=== PATIENT | female | born 1985 | race Caucasian/White ===

== ENCOUNTER 2017-06-19 11:11 | Emergency (ER) | payer OTHER ==
[2017-06-19] MEDS ORDERED: Ondansetron HCl/PF 4 MG/2 ML Vial ONE (11:37)
[2017-06-19 12:03] LABS: #Basophils 0.1 thou/uL (0.0-0.2); #Eosinphils 0.1 thou/uL (0.0-0.7); #Lymphocytes 2.7 thou/uL (1.20-3.40); #Monocytes 0.8 thou/uL (0.11-0.59); #Neutrophils 7.4 thou/uL (1.40-6.50); %Basophils 0.9 % (0.0-1.0); %Eosinophils 0.6 % (0.0-10.0); %Lymphocytes 24.8 % (21.0-51.0); %Monocytes 6.8 % (0.0-10.0); %Neutrophils 66.9 % (42.0-75.0); Hemoglobin 12.3 g/dL (12.0-16.0); Mean Corpuscular HGB CONC 34.9 g/dL (32.0-36.0); Mean Corpuscular Hemoglobin 29.7 pg (27.0-31.0); Mean Platelet Volume 6.4 fL (7.4-10.4); Platelet Count 354 thou/uL (130-400); RBC Distribution Width 11.6 % (11.5-14.5); Red Blood Cell (RBC) Count 4.14 mill/uL (4.20-5.40); White Blood Cell (WBC) Count 11.1 thou/uL (4.8-10.8)
[2017-06-19 12:17] LABS: ALT (SGPT) 20 U/L (8-55); AST (SGOT) 18 U/L (5-34); Albumin 3.8 g/dL (3.5-5.0); Alkaline Phosphatase 62 U/L (40-150); Anion Gap 14 mmol/L (10-20); BUN (Urea Nitrogen) 5 mg/dL (7.0-18.7); Bilirubin, Total 0.3 mg/dL (0.2-1.2); Calc. Creatinine Clearance 0 mL/min (70-130); Calcium 9.7 mg/dL (7.8-10.44); Carbon Dioxide 22 mmol/L (22-29); Chloride 106 mmol/L (98-107); Estimated GFR-MDRD Greater than 90; Globulin 3.2 g/dL (2.4-3.5); Glucose 96 mg/dL (70-105); Potassium 3.5 mmol/L (3.5-5.1); Sodium 138 mmol/L (136-145)
[2017-06-19 12:41] LABS: Bilirubin Negative (Negative); Blood, Urine Moderate (Negative); Clarity Cloudy (Clear); Glucose, Urine (Dipstick) Negative (Negative); Leukocyte Negative (Negative); Nitrite Negative (Negative); Protein, Urine (Dipstick) Trace mg/dL (Neg-Trace); Specific Gravity, Urine 1.015 (1.005-1.030); Urobilinogen 0.2 mg/dL (0.2-1.0); pH, Urine 8.5 (5.0-9.0)
[2017-06-19 12:43] LABS: Bacteria/HPF 1+ HPF (None Seen); Crystals/HPF 4+ AMORPH PHOS HPF (Negative); Squamous Epithelial 0-3 HPF (0-3); WBC/HPF 0-3 HPF (0-3)
--- NOTE | 2017-06-19 15:15 | ULT ---
ULTRASOUND OB LIMITED: HISTORY: Vaginal spotting. COMPARISON: None. TECHNIQUE: Real-time, marshall scale, color Doppler with spectral analysis of the gravid uterus performed by transab dominal approach. Single viable intrauterine with average ultrasound age 15 weeks 5 days, estimated date of d elivery 12/06/17. The placenta is anterior and the presentation cephalic. Biparietal diameter is 16 weeks 0 days, 3.22 cm. Head circumference 16 weeks 1 day, 11.89 cm. Abdominal circumference 15 weeks 3 days, 9.32 cm. Femur length 15 weeks 4 days, 1.86 cm. heart rate documented at 153 b.p.m. IMPRESSION: Single viable intrauterine with average ultrasound age 15 weeks 5 days with estimated date of delivery 12/06/17. Recommend dedicated anatomic survey at 20 weeks. POS: ROBBIE
[2017-06-22 00:53] LABS: Chlamydia by PCR Not Detected (NotDetected); GC by PCR Not Detected (NotDetected)
== END 2017-06-19 13:21 | disposition home or self-care (01) ==
LOC: SCSER 11:11
DX: O20.9 Hemorrhage in early pregnancy, unspecified (principal); O99.282 Endocrine, nutritional and metabolic diseases complicating pregnancy, second trimester; E03.9 Hypothyroidism, unspecified; Z79.899 Other long term (current) drug therapy; Z3A.15 15 weeks gestation of pregnancy
CPT/HCPCS: 76815; 76856; 80053; 81003; 81015; 84702; 85025; 86900; 86901; 87086; 87480; 87491; 87510; 87591; 87660; 96374; J2405

== ENCOUNTER 2017-08-18 11:05 | Day surgery (SDC) | payer OTHER ==
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
[2017-08-18 11:24] VITALS: BMI 31.8
[2017-08-18 11:26] VITALS: BP 139/88; TEMP 99.7
[2017-08-18] MEDS ORDERED: Acetaminophen 500 MG TAB PO SCH (12:15)
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
== END 2017-08-18 13:15 | disposition home health service (06) ==
LOC: L&D/OP 11:05 → EDSTATUS 11:12 → L&D/OP 13:15
PROVIDERS: ATTEND Student in an Organized Health Care Education/Training Program
DX: O9A.212 Injury, poisoning and certain other consequences of external causes complicating pregnancy, second trimester (principal); Z3A.24 24 weeks gestation of pregnancy; Z88.0 Allergy status to penicillin; Z88.1 Allergy status to other antibiotic agents; Z88.8 Allergy status to other drugs, medicaments and biological substances
CPT/HCPCS: 99283; 99284

== ENCOUNTER 2017-09-12 15:40 | Day surgery (SDC) | payer OTHER ==
[2017-09-12 16:19] VITALS: BMI 30.3
[2017-09-12 16:20] VITALS: BP 160/99; TEMP 98.4
[2017-09-12 17:03] LABS: #Eosinphils 0.1 thou/uL (0.0-0.7); #Lymphocytes 2.9 thou/uL (1.20-3.40); #Monocytes 0.8 thou/uL (0.11-0.59); #Neutrophils 5.4 thou/uL (1.40-6.50); %Basophils 0.5 % (0.0-1.0); %Eosinophils 0.6 % (0.0-10.0); %Lymphocytes 31.9 % (21.0-51.0); %Monocytes 8.4 % (0.0-10.0); %Neutrophils 58.6 % (42.0-75.0); Hemoglobin 12.3 g/dL (12.0-16.0); Mean Corpuscular HGB CONC 34.5 g/dL (32.0-36.0); Mean Corpuscular Hemoglobin 30.5 pg (27.0-31.0); Mean Corpuscular Volume 88.5 fL (78.0-98.0); Mean Platelet Volume 6.4 fL (7.4-10.4); Platelet Count 288 thou/uL (130-400); RBC Distribution Width 12.1 % (11.5-14.5); Red Blood Cell (RBC) Count 4.02 mill/uL (4.20-5.40); White Blood Cell (WBC) Count 9.2 thou/uL (4.8-10.8)
[2017-09-12 17:20] LABS: Bilirubin Negative (Negative); Blood, Urine Small (Negative); Clarity CLOUDY (Clear); Glucose, Urine (Dipstick) Negative (Negative); Leukocyte Negative (Negative); Nitrite Negative (Negative); Protein, Urine (Dipstick) Trace mg/dL (Neg-Trace); Specific Gravity, Urine 1.011 (1.002-1.036); Urobilinogen 0.2 mg/dL (0.2-1.0)
[2017-09-12 17:24] LABS: Bacteria/HPF None Seen HPF (None Seen); Hyaline Casts/LPF 0-3 HYALINE CAST LPF (0-3 Hyaline); Pathc Cast-AUWi Flag 0.14 (0-2.49); Squamous Epithelial 0-3 HPF (0-3); WBC/HPF 0-3 HPF (0-3)
[2017-09-12 17:24] LABS: ALT (SGPT) 24 U/L (8-55); AST (SGOT) 20 U/L (5-34); Albumin 3.3 g/dL (3.5-5.0); Alkaline Phosphatase 103 U/L (40-150); Anion Gap 11 mmol/L (10-20); BUN (Urea Nitrogen) 6 mg/dL (7.0-18.7); Bilirubin, Total 0.2 mg/dL (0.2-1.2); Calc. Creatinine Clearance 155 mL/min (70-130); Calcium 9.2 mg/dL (7.8-10.44); Carbon Dioxide 20 mmol/L (22-29); Chloride 108 mmol/L (98-107); Estimated GFR-MDRD Greater than 90; Glucose 83 mg/dL (70-105); Potassium 3.3 mmol/L (3.5-5.1); Protein, Total 6.3 g/dL (6.0-8.3); Sodium 136 mmol/L (136-145)
--- NOTE | 2017-09-13 05:36 | SS ---
LABOR AND DELIVERY TRIAGE NOTE DATE OF EVALUATION: 09/12/2017 REGULAR PHYSICIAN: Jamia Salinas M.D. EVALUATING PHYSICIAN: Hay Nicole M.D. CHIEF COMPLAINT: Elevated blood pressures at home. HISTORY OF PRESENT ILLNESS: Ms. Chris is a 32-year-old, G2, P0, AB1 with an estimated date of confinement of 12/08/2017, who presents complaining of elevated blood pressures at home. She called the [facility] with complaints of intermittent headache throughout the week with blood pressures at home of 156/112 and 159/108. She was instructed to come to labor and delivery. Her care has been with Dr. Salinas. PAST OBSTETRICAL HISTORY: She has had one early miscarriage. PAST MEDICAL HISTORY: History of migraine headaches, hypothyroidism. CURRENT MEDICATIONS: Synthroid 50 mcg daily. PAST SURGICAL HISTORY: None. ALLERGIES: She reports allergies to NORTRIPTYLINE, DOXYCYCLINE, MACROBID, VESICARE, and TOVIAZ. SOCIAL HISTORY: She denies tobacco or alcohol use. PHYSICAL EXAMINATION: VITAL SIGNS: Initial blood pressure in triage is 160/99. Subsequent blood pressures are 140/86 and 137/83, temperature 98.5, pulse 98, respirations 18. Serial blood pressures are obtained throughout her stay. Her blood pressures remain in the 130s/80s range. ABDOMEN: Soft, nontender and gravid. PELVIC: Pelvic examination is deferred. heart tones were stable. No significant uterine activity seen. LABORATORY DATA: CBC: White count 9.2, hemoglobin 12.3, hematocrit 35.6, platelet count 288,000. Chemistry shows a creatinine of 0.62, glucose of 83, total bilirubin of 0.2, and AST and ALT of 20 and 24 respectively. Urinalysis shows a specific gravity of 1.011 with negative nitrites, negative leukocytes, trace urine protein, negative glucose, negative ketones and negative bilirubin. ASSESSMENT: 1. 27-week intrauterine . 2. No evidence of preeclampsia at this time. PLAN: The patient has been instructed to go home to rest. She was given complete preeclampsia precautions and is told to return for severe headache, right upper quadrant pain or visual changes. She voices understanding of her discharge instructions and states that she has a followup with Dr. Salinas in early next week. [facility]
== END 2017-09-12 18:15 | disposition home or self-care (01) ==
LOC: L&D/OP 15:40
PROVIDERS: ATTEND Student in an Organized Health Care Education/Training Program
DX: O99.89 Other specified diseases and conditions complicating pregnancy, childbirth and the puerperium (principal); R03.0 Elevated blood-pressure reading, without diagnosis of hypertension; E03.9 Hypothyroidism, unspecified; Z79.899 Other long term (current) drug therapy; Z88.1 Allergy status to other antibiotic agents; Z3A.27 27 weeks gestation of pregnancy
CPT/HCPCS: 36415; 80053; 81003; 81015; 85025; 99283

== ENCOUNTER 2017-09-13 16:03 | Inpatient (IN) | payer OTHER ==
[2017-09-13] MEDS ORDERED: Promethazine HCl 25 MG/ML VIAL IM PRN (16:28)
[2017-09-13] MEDS ORDERED: Zolpidem Tartrate 5 MG TAB PO PRN (16:28)
[2017-09-13] MEDS ORDERED: Ondansetron HCl/PF 4 MG/2 ML Vial IVP PRN (16:28)
[2017-09-13] MEDS ORDERED: Docusate 100 MG CAP PO PRN (16:28)
[2017-09-13] MEDS ORDERED: Acetaminophen 500 MG TAB PO PRN (16:28)
[2017-09-13 17:23] LABS: #Eosinphils 0.1 thou/uL (0.0-0.7); #Lymphocytes 3.1 thou/uL (1.20-3.40); #Monocytes 0.7 thou/uL (0.11-0.59); #Neutrophils 6.5 thou/uL (1.40-6.50); %Basophils 0.3 % (0.0-1.0); %Eosinophils 0.7 % (0.0-10.0); %Lymphocytes 29.9 % (21.0-51.0); %Monocytes 6.7 % (0.0-10.0); %Neutrophils 62.4 % (42.0-75.0); Hemoglobin 12.6 g/dL (12.0-16.0); Mean Corpuscular HGB CONC 34.8 g/dL (32.0-36.0); Mean Corpuscular Hemoglobin 30.8 pg (27.0-31.0); Mean Corpuscular Volume 88.3 fL (78.0-98.0); Mean Platelet Volume 6.7 fL (7.4-10.4); Platelet Count 285 thou/uL (130-400); RBC Distribution Width 12.2 % (11.5-14.5); Red Blood Cell (RBC) Count 4.11 mill/uL (4.20-5.40); White Blood Cell (WBC) Count 10.5 thou/uL (4.8-10.8)
[2017-09-13 17:36] VITALS: BMI 30.7
[2017-09-13 17:43] LABS: ALT (SGPT) 25 U/L (8-55); AST (SGOT) 21 U/L (5-34); Albumin 3.5 g/dL (3.5-5.0); Alkaline Phosphatase 114 U/L (40-150); Anion Gap 14 mmol/L (10-20); BUN (Urea Nitrogen) 8 mg/dL (7.0-18.7); Bilirubin, Total 0.2 mg/dL (0.2-1.2); Calc. Creatinine Clearance 152 mL/min (70-130); Calcium 9.4 mg/dL (7.8-10.44); Carbon Dioxide 20 mmol/L (22-29); Chloride 107 mmol/L (98-107); Estimated GFR-MDRD Greater than 90; Globulin 2.8 g/dL (2.4-3.5); Glucose 129 mg/dL (70-105); Potassium 3.7 mmol/L (3.5-5.1); Protein, Total 6.3 g/dL (6.0-8.3); Sodium 137 mmol/L (136-145)
[2017-09-13 17:53] LABS: Creatinine, Urine 78.04 mg/dL (47-110)
[2017-09-13] MEDS: Betamet Acet/Betamet Na Ph 30 MG/5 ML VIAL IM SCH (17:55)
--- NOTE | 2017-09-13 18:23 | PDOC.LDHP ---
Labor and Delivery H&P Chief complaint: other (elevated blood pressures) HPI: 32yo at 27w6d by LMP presented to clinic with c/o increased pain in upper extremities, especially hands, dull BAINS for last 1 wk. Started checking BP on Wednesday with new onset mild range BP, wednesday BPs were severe range and seen in triage, had nl BP and neg PIH labs. Today at work had manual bps in severe range as high as 115 diastolic. In our clinic they were 160s/90s and pt c/o dull BAINS. Good FM, no PTL signs or VB. No abd pain. +diarrhea, no fever. Current gestational age (weeks): 28 Dating criteria: last menstrual period Grav: 2 Para: 0 Current complications: none Abnormal US findings: No Past Medical History: hypothyroid, migraine BAINS Current medications: pre- vitamins, other (levothyroxine) Previous surgical history: none Allergies/Adverse Reactions: Allergies Allergy/AdvReac Type Severity Reaction Status Date / Time amoxicillin [From Augmentin] Allergy Rash Verified 08/18/17 11:22 clavulanic acid Allergy Rash Verified 09/13/17 17:47 [From Augmentin] doxycycline Allergy Rash Verified 08/18/17 11:22 fesoterodine [From Toviaz] Allergy Hives Verified 08/18/17 11:23 nitrofurantoin Allergy Stomach Verified 08/18/17 11:21 [From Macrobid] Ache nortriptyline Allergy Rash Verified 08/18/17 11:21 Social history: none - Physical Exam Vital signs reviewed and normal: yes General: NAD Heart: RRR Lungs: CTAB Abdomen: gravid Extremeties: no edema FHT: category 1 [place] contractions every: none - OB Labs RH: positive Antibody Screen: negative HIV: negative RPR: negative HEPSAg: negative GBS: unknown Rubella: immune - Assessment New onset elevated BP with BAINS and 1+ protein on office Udip at 28wk - Plan Plan: admit to L&D, informed consent obtained -: - PIH labs wnl, PCR 0.4 (abn) - BAINS improved - BP mild range - Transfer to floor with observation of BP. - BMZ x 2 doses - sono for growth and ARTURO/presentation - Cont inpatient care.
--- NOTE | 2017-09-13 18:45 | ULT ---
LIMITED OBSTETRICAL ULTRASOUND: 09/13/2017 HISTORY: A 32-year-old female with pre-eclampsia. Evaluate size and dates, presentation, and a mniotic fluid index. TECHNIQUE: Multiplanar marshall-scale sonographic imaging of the gravid uterus obtained. FINDINGS: A single intrauterine gestation is visualized with a breech presentation. The placenta is located an teriorly, with no evidence for previa or abruption. Amniotic fluid index is 15 cm. heart rate is 139 beats per minute. anatomy is not assessed on this examination. BIOMETRY: BPD: 7.1 cm (28 weeks 4 days) HC: 26.7 cm (29 weeks 1 day) AC: 24.5 cm (28 weeks 5 days) FL: 5.3 cm (28 weeks 2 days) AVERAGE AGE BASED ON ULTRASOUND: 28 weeks 4 days ESTIMATED DATE OF DELIVERY: 12/02/2017 ESTIMATED WEIGHT: 1255 g, plus or minus 186 g IMPRESSION: Single intrauterine gestation, as described above. POS: SAMANTHA
[2017-09-14] MEDS: Betamet Acet/Betamet Na Ph 30 MG/5 ML VIAL IM SCH (17:07)
--- NOTE | 2017-09-15 03:25 | PRG ---
DATE OF SERVICE: 09/14/2017 TIME OF VISIT: 0800 hours. SUBJECTIVE: Overnight, the patient rested well. She denies any headache, visual changes or right up per quadrant pain. She endorses good movement and she tolerated a regular diet without nausea or vomiting. OBJECTIVE: VITAL SIGNS: Blood pressures had been in the mild range in the 140s/80s, pulse rate is 99, temperatu re 98.4, respirations 18. GENERAL: No acute distress. CARDIAC: Regular rate and rhythm. LUNGS: Clear to auscultation bilaterally. ABDOMEN: Soft, nontender, gravid. EXTREMITIES: Trace lower extremity edema, nonpitting, NST category 1 for gestational age. ASSESSMENT AND PLAN: A 32-year-old at 28 weeks and 0 days with new-onset elevated blood pressu res consistent with some mild preeclampsia. At this point, the patient has not ruled in for se kvng disease, has had normal labs, and is asymptomatic with occasional intermittent headache. She shields s gotten 1 dose of betamethasone, unable to complete the course . As her blood pressures remain ed mild and she has no symptoms suggesting their features, she will be for discharge and of course ou tpatient followup. She had a ultrasound that showed size equal to dates, breech presentation, baby measuring 1255 g, 28 weeks and 4 days, amniotic fluid index is 15 and anterior placenta. Plan o f care was discussed with the patient. She will continue every shift monitoring and q.4 hours vital signs in the sitting position. She will also continue her home medications of levothyroxine and pren atal vitamins.
[2017-09-15] MEDS ORDERED: Levothyroxine Sodium 50 MCG TAB PO SCH (06:00)
[2017-09-15 06:18] VITALS: TEMP 98.2
[2017-09-15 08:20] VITALS: BP 133/71
--- NOTE | 2017-09-15 08:43 | PRG ---
DATE OF SERVICE: 09/15/2017 TIME: 729 SUBJECTIVE: Overnight, the patient rested well. She did have some hot flashes and feels swollen. S he denies any current headache, visual change or right upper quadrant or abdominal pain. She endorse s good movement. Denied vaginal bleeding, leakage of fluid or contraction. OBJECTIVE: VITAL SIGNS: Blood pressure has trended downward, it is occasionally in the 140s/80s, this morning i t was 133/71, temperature is 98.2, pulse is 92, respirations 20. GENERAL: No acute distress, alert and oriented x3. HEART: Regular rate and rhythm. LUNGS: Clear to auscultation bilaterally. ABDOMEN: Soft, nontender and gravid. EXTREMITIES: Trace lower extremity edema, nonpitting. NST for the last shift was category 1 for gestational age. LABORATORY DATA: No new labs at this time. ASSESSMENT AND PLAN: This is a 32-year-old G2, P0 at 28 and 1 day with mild preeclampsia. Currently , no severe features, status post betamethasone x2 doses. Have dispositioned the patient for outpati ent management of mild preeclampsia with modified bed rest and close follow up in the office in 2 day s. She was given instructions to start a blood pressure log 3 times daily and given parameters to re turn to the ER for, as well as warnings for any symptoms. Discussed indications for delivery or read mission to the hospital. All questions were answered and the plan was discussed with the patient and her and they understand.
[2017-09-15] MEDS ORDERED: Prenatal Vitamin 1 TAB PO SCH (09:00)
== END 2017-09-15 08:50 | disposition home health service (06) | DRG 781 ==
LOC: L&D/OP 16:03 → L&D 18:59 → 3SW 20:50
PROVIDERS: ADMIT Student in an Organized Health Care Education/Training Program; ATTEND Student in an Organized Health Care Education/Training Program
DX: O14.03 Mild to moderate pre-eclampsia, third trimester (principal); Z3A.28 28 weeks gestation of pregnancy
CPT/HCPCS: 36415; 59025; 76815; 80053; 81003; 81015; 82570; 84156; 85025; 99283; A4216; J0702

== ENCOUNTER 2017-09-30 11:20 | Observation (INO) | payer OTHER ==
[2017-09-30 11:55] VITALS: BMI 29.4
[2017-09-30] MEDS ORDERED: Ondansetron HCl/PF 4 MG/2 ML Vial IVP PRN (12:52)
[2017-09-30] MEDS ORDERED: Acetaminophen 325 MG TAB PO PRN (12:55)
[2017-09-30] MEDS ORDERED: Zolpidem Tartrate 5 MG TAB PO PRN (12:56)
[2017-09-30] MEDS ORDERED: Lactated Ringer's 500 ML IV SCH (13:00)
[2017-09-30 13:15] LABS: Hemoglobin 14.2 g/dL (12.0-16.0); Mean Corpuscular HGB CONC 35.2 g/dL (32.0-36.0); Mean Corpuscular Hemoglobin 31.4 pg (27.0-31.0); Mean Platelet Volume 6.7 fL (7.4-10.4); Platelet Count 294 thou/uL (130-400); RBC Distribution Width 12.6 % (11.5-14.5); Red Blood Cell (RBC) Count 4.53 mill/uL (4.20-5.40); White Blood Cell (WBC) Count 9.7 thou/uL (4.8-10.8)
[2017-09-30 13:41] LABS: ALT (SGPT) 19 U/L (8-55); AST (SGOT) 22 U/L (5-34); Albumin 3.6 g/dL (3.5-5.0); Alkaline Phosphatase 146 U/L (40-150); Anion Gap 15 mmol/L (10-20); BUN (Urea Nitrogen) 9 mg/dL (7.0-18.7); Bilirubin, Total 0.4 mg/dL (0.2-1.2); Calc. Creatinine Clearance 145 mL/min (70-130); Calcium 9.4 mg/dL (7.8-10.44); Carbon Dioxide 20 mmol/L (22-29); Chloride 106 mmol/L (98-107); Estimated GFR-MDRD Greater than 90; Globulin 3.1 g/dL (2.4-3.5); Glucose 91 mg/dL (70-105); Potassium 4.2 mmol/L (3.5-5.1); Protein, Total 6.7 g/dL (6.0-8.3); Sodium 137 mmol/L (136-145)
[2017-10-01 07:43] VITALS: TEMP 98.4
--- NOTE | 2017-10-01 07:55 | HP ---
DATE OF ENCOUNTER: 09/30/2017 PRIMARY [employer]ENSED [employer] AGENTS: Dr. Jamia Salinas. HISTORY OF PRESENT ILLNESS: The patient is a 32-year-old G2, P0 female with an intrauterine at 30 weeks and 3 days who presented to the emergency room after being advised by the office due to elevated blood pressures. The patient has a known diagnosis of preeclampsia without severe features and is being monitored weekly as an outpatient. Patient reports that this morning she has had several severe range of blood pressures at home with systolic pressures into the 170s and diastolic pressures up to 115. The patient reports she had a severe headache last night, which has spontaneously improved, though not resolved. The patient also reports she has had nausea and vomiting this morning between about 5:30 and her arrival here. This seemed to have resolved with Zofran taken at home. The patient denies any right upper quadrant tenderness or shortness of breath. She does report upper extremity swelling. She denies fever, chest pain, shortness of breath, any new rashes. She reports diarrhea recently. Denies constipation. Denies hip problems, knee problems. Denies vaginal bleeding, leakage of fluid, urinary urgency or frequency. PAST MEDICAL HISTORY: Significant for anemia in college. Thyroid disorder on levothyroxine. PAST SURGICAL HISTORY: She had wisdom teeth removed. SOCIAL HISTORY: Denies drug, alcohol or tobacco use. ALLERGIES: The patient is allergic to VESICARE, TOVIAZ, AUGMENTIN, DOXYCYCLINE , MACROBID, and NORTRIPTYLINE. MEDICATIONS: She currently has prescribed vitamins, levothyroxine 50 mcg daily, Zofran ODT 4 mg p.r.n. OBSTETRICAL LABORATORY DATA: RPR is nonreactive in the first trimester. Hepatitis B surface antigen is nonreactive in the first trimester. HIV is nonreactive in the first trimester. Her TSH was 0.47 in the first trimester. Type and screen O positive with a negative antibody screen. She is rubella immune. REVIEW OF SYSTEMS: Per HPI. PHYSICAL EXAMINATION: VITAL SIGNS: Blood pressure on arrival 145/93, heart rate of 100, respiratory rate of 18, satting 97%-98% on room air, temperature 98.1. Subsequent pressures have normalized with her most recent being 137/87. GENERAL: Patient does not appear to be feeling well. She is alert and oriented , cooperative and pleasant to interact with. HEENT: Head is normocephalic, atraumatic. LUNGS: Clear to auscultation bilaterally. HEART: Has a regular rate and rhythm. ABDOMEN: Gravid, soft, nontender. EXTREMITIES: Nontender, nonedematous. GENITOURINARY: Has been deferred. NEUROLOGIC: Deep tendon reflexes are 2+ with 1 beat of clonus. heart tracing shows a baseline in the 140s with moderate long-term variability with 15 x 15 accelerations. There is irritability on the tocometer , but no definite contraction pattern, not felt by the patient. LABORATORY DATA: White count of 9.7, hemoglobin 14.2, hematocrit 40.3, platelets of 294,000. Sodium 137, potassium 4.2, chloride 106, bicarbonate 20, BUN 9, creatinine 0.66, glucose of 91, AST of 22, ALT of 19, albumin 3.6. ASSESSMENT AND PLAN: The patient is a 32-year-old female with an intrauterine at 30 weeks and 3 days, who has a previous diagnosis of preeclampsia without severe features. The patient reported severe range pressures this morning with headache. There does not appear to be any worsening of disease at this time. Pressures have been normal to mild range during her initial evaluation, pH labs at this time, are all within normal limits. Patient is being admitted for blood pressure monitoring. I have contacted her primary OB, Dr. Jamia Salinas who will be taking over management. Patient will be given IV and placed on maintenance fluids to rehydrate as the patient was persistently vomiting this morning for the next 24 hours or so and then discontinue. Patient is status post betamethasone steroid administration should she requires delivery in this admission. We will confirm presentation by ultrasound. [facility]
[2017-10-01] MEDS ORDERED: Levothyroxine Sodium 75 MCG TAB PO SCH (09:00)
[2017-10-01] MEDS ORDERED: Prenatal Vitamin 1 TAB PO SCH (09:00)
--- NOTE | 2017-10-01 11:31 | ULT ---
BIOPHYSICAL PROFILE: 10/01/2017 HISTORY: A 32-year-old female with elevated blood pressure. TECHNIQUE: Multiplanar marshall-scale sonographic imaging of the gravid uterus is obtained, as described below. FINDINGS: Cervical length is approximately 3.9 cm. The placenta is located anteriorly with no evidence for pre via or abruption. A single intrauterine gestation is present with a heart rate of 143-147 beat s per minute. Amniotic fluid index is 13.3 cm. anatomy is not evaluated on this examination. tone, breathing, movements, and amniotic fluid scored 2/2. A transverse maternal l eft presentation is noted. IMPRESSION: An 8/8 biophysical profile. POS: [facility]
[2017-10-01 17:36] VITALS: BP 138/87
== END 2017-10-01 17:30 | disposition home health service (06) ==
LOC: L&D/OP 11:20 → L&D 13:02
PROVIDERS: ADMIT Student in an Organized Health Care Education/Training Program; ATTEND Student in an Organized Health Care Education/Training Program
DX: O14.03 Mild to moderate pre-eclampsia, third trimester (principal); O99.283 Endocrine, nutritional and metabolic diseases complicating pregnancy, third trimester; E07.9 Disorder of thyroid, unspecified; Z3A.30 30 weeks gestation of pregnancy; Z79.899 Other long term (current) drug therapy; Z88.0 Allergy status to penicillin; Z88.1 Allergy status to other antibiotic agents; Z88.8 Allergy status to other drugs, medicaments and biological substances
CPT/HCPCS: 76819; 80053; 85027; 86850; 86900; 86901; 99285

== ENCOUNTER 2017-10-07 16:33 | Inpatient (IN) | payer OTHER ==
[2017-10-07 17:37] VITALS: BMI 29.7
[2017-10-07 18:35] LABS: #Basophils 0.1 thou/uL (0.0-0.2); #Eosinphils 0.1 thou/uL (0.0-0.7); #Lymphocytes 3.3 thou/uL (1.20-3.40); #Monocytes 0.8 thou/uL (0.11-0.59); #Neutrophils 5.4 thou/uL (1.40-6.50); %Basophils 0.8 % (0.0-1.0); %Eosinophils 0.9 % (0.0-10.0); %Lymphocytes 34.3 % (21.0-51.0); %Monocytes 8.2 % (0.0-10.0); %Neutrophils 55.9 % (42.0-75.0); Hemoglobin 13.5 g/dL (12.0-16.0); Mean Corpuscular HGB CONC 35.3 g/dL (32.0-36.0); Mean Corpuscular Hemoglobin 31.5 pg (27.0-31.0); Mean Corpuscular Volume 89.1 fL (78.0-98.0); Mean Platelet Volume 6.9 fL (7.4-10.4); Platelet Count 257 thou/uL (130-400); RBC Distribution Width 12.7 % (11.5-14.5); Red Blood Cell (RBC) Count 4.28 mill/uL (4.20-5.40); White Blood Cell (WBC) Count 9.6 thou/uL (4.8-10.8)
[2017-10-07] MEDS ORDERED: Promethazine HCl 25 MG/ML VIAL IM PRN (18:45)
[2017-10-07] MEDS ORDERED: Zolpidem Tartrate 5 MG TAB PO PRN (18:45)
[2017-10-07] MEDS ORDERED: Docusate 100 MG CAP PO PRN (18:45)
[2017-10-07] MEDS ORDERED: Ondansetron HCl/PF 4 MG/2 ML Vial IVP PRN (18:45)
[2017-10-07] MEDS ORDERED: Acetaminophen 500 MG TAB PO PRN (18:45)
[2017-10-07 18:55] LABS: ALT (SGPT) 22 U/L (8-55); AST (SGOT) 18 U/L (5-34); Albumin 3.3 g/dL (3.5-5.0); Alkaline Phosphatase 144 U/L (40-150); Anion Gap 13 mmol/L (10-20); BUN (Urea Nitrogen) 11 mg/dL (7.0-18.7); Bilirubin, Total 0.2 mg/dL (0.2-1.2); Calc. Creatinine Clearance 139 mL/min (70-130); Calcium 9.5 mg/dL (7.8-10.44); Carbon Dioxide 21 mmol/L (22-29); Chloride 105 mmol/L (98-107); Estimated GFR-MDRD Greater than 90; Globulin 3.2 g/dL (2.4-3.5); Glucose 104 mg/dL (70-105); Potassium 3.6 mmol/L (3.5-5.1); Protein, Total 6.5 g/dL (6.0-8.3); Sodium 135 mmol/L (136-145)
--- NOTE | 2017-10-07 19:27 | PDOC.LDHP ---
Labor and Delivery H&P Chief complaint: other (elevated blood pressures) HPI: 32yo at 31w3d by LMP sent from office for persistent severe range BPs 150- 160/100s on home monitoring for the last 48hr. Has shoulder right arm pain, some slight abd pain diffuse, no BAINS vision change RUQ pain. Good FM. No PTL sx. Current gestational age (weeks): 31 Due date: 12/07/17 Dating criteria: last menstrual period Grav: 2 Para: 0 Current complications: preeclampsia without severe features Abnormal US findings: No Past Medical History: hypothyroid, migraine BAINS Current medications: pre-deandra vitamins, other (levothyroxine 75mcg) Allergies/Adverse Reactions: Allergies Allergy/AdvReac Type Severity Reaction Status Date / Time amoxicillin [From Augmentin] Allergy Rash Verified 08/18/17 11:22 clavulanic acid Allergy Rash Verified 09/13/17 17:47 [From Augmentin] doxycycline Allergy Rash Verified 08/18/17 11:22 fesoterodine [From Toviaz] Allergy Hives Verified 08/18/17 11:23 nitrofurantoin Allergy Stomach Verified 08/18/17 11:21 [From Macrobid] Ache nortriptyline Allergy Rash Verified 08/18/17 11:21 Social history: none - Physical Exam Vital signs reviewed and normal: yes General: NAD Heart: RRR Lungs: CTAB Abdomen: gravid Extremeties: trace edema FHT: category 1 [place] contractions every: none - OB Labs Blood type: O RH: positive Antibody Screen: negative HIV: negative RPR: negative HEPSAg: negative 1 hour GCT: unknown GBS: unknown Urine drug screen: not done Rubella: immune - Assessment 32yo at 31w3d with PIH r/o severe features. Inpt observation for severe features, disc indications for delivery including symptoms, abn labs, pulmonary edema or persistent severe range BP unable to be controlled by po antihypertensives or 34wk gestation. Ceph presentation, S=D on in office sono. For rescue course BMZ and q shift NST, Bedrest BR privileges, weekly BPP. Will do GBS.
[2017-10-07] MEDS: Betamet Acet/Betamet Na Ph 30 MG/5 ML VIAL IM SCH (21:27)
[2017-10-07 22:50] LABS: Creatinine, Urine 129.61 mg/dL (47-110)
[2017-10-08] MEDS: Levothyroxine Sodium 75 MCG TAB PO SCH (05:53)
--- NOTE | 2017-10-08 08:49 | PDOC.LDPN ---
Labor & Delivery Progress Note - Subjective Subjective: comfortable - Objective Abnormal vital signs: mild range BP General: NAD Uterine fundus: non tender -: 32yo at 31w4d by LMP with PIH. Normal labs, PCR 0.5 No sx currently Receiving rescue course of BMZ For inpt monitoring and observation. If stable may allow DC home early next week. Plan of care discussed.
[2017-10-08] MEDS: Betamet Acet/Betamet Na Ph 30 MG/5 ML VIAL IM SCH (21:59)
--- NOTE | 2017-10-09 03:01 | PDOC.EVN ---
Event Note - Event Note Event Note: Bed 317 Admitted 10/07 Admitted 10/07/17 EGA: 31 week 5 days S. Doing well. She was awake this am. No HAs, no visual issues, no RUQ pain O. BPs reviewed with her: range from 140/90s to 150/90s Afebrile Next NST today wednesday per RN report Abd soft, NT Assessment and plan: 1. 31 weeks 5 days, Preeclampsia by BPs and UPr:Cr ratio. No evidence severe criteria. Continue in-house obs as per carlos Obs with prob dsch early next week if able with close outpatient follow up
[2017-10-09] MEDS: Levothyroxine Sodium 75 MCG TAB PO SCH (05:55)
[2017-10-10] MEDS: Levothyroxine Sodium 75 MCG TAB PO SCH (05:49)
--- NOTE | 2017-10-10 08:48 | PRG ---
DATE OF SERVICE: 10/10/2017 SUBJECTIVE: The patient is hospital day #5 with an intrauterine at 31 weeks for blood pres sure monitoring. The patient has a diagnosis of preeclampsia without severe features. Patient denie s any headache, chest pain, shortness of breath, right upper quadrant tenderness. OBJECTIVE: VITAL SIGNS: This morning, blood pressure is 126/82, temperature 98.2, pulse is 73, respiratory rate of 16, satting 95% on room air. Her blood pressures in the last 24 hours have been in the mild rang e with a peak blood pressure 151/89. GENERAL: The patient appears to be in no acute distress. She is alert and oriented, cooperative and pleasant to interact with. HEENT: Head is normocephalic, atraumatic. LUNGS: Clear to auscultation bilaterally. HEART: Regular rate and rhythm. ABDOMEN: She has no abdominal tenderness to palpation. ASSESSMENT AND PLAN: The patient is a 32-year-old female with an intrauterine at 31 weeks, here being monitored for preeclampsia without severe features. The patient is currently not on any antihypertensive medications. We will continue inhouse monitoring through the weekend. Patient, of note, has a thyroid dysfunction and is on levothyroxine at 75 mcg per day.
[2017-10-11] MEDS: Levothyroxine Sodium 75 MCG TAB PO SCH (06:29)
[2017-10-11 08:31] VITALS: BP 155/94; TEMP 98.2
== END 2017-10-11 10:35 | disposition home or self-care (01) | DRG 781 ==
LOC: L&D/OP 16:33 → 3SE 19:30
PROVIDERS: ADMIT Student in an Organized Health Care Education/Training Program; ATTEND Student in an Organized Health Care Education/Training Program
DX: O14.93 Unspecified pre-eclampsia, third trimester (principal); O99.283 Endocrine, nutritional and metabolic diseases complicating pregnancy, third trimester; E03.9 Hypothyroidism, unspecified; Z3A.31 31 weeks gestation of pregnancy; Z88.1 Allergy status to other antibiotic agents; Z88.0 Allergy status to penicillin; Z88.8 Allergy status to other drugs, medicaments and biological substances; Z79.899 Other long term (current) drug therapy
CPT/HCPCS: 36415; 59025; 80053; 82570; 84156; 85025; 86592; 87389; 99285; J0702

== ENCOUNTER 2017-10-27 09:30 | Inpatient (IN) | payer OTHER ==
--- NOTE | 2017-10-27 10:49 | PDOC.FPROB ---
FMR OB H&P: HPI - History of Present Illness Chief Complaint: Elevated BP History of Present Illness: 32 yo @ 34.0 wk dated by LMP/8.3 wk US and known Pre-eclampsia since 28 wk gestation s/p steroids. Presents from clinic for Pre-E re-evaluation. Patient states she was started on procardia 1-2 weeks ago for BP control. States medication initially helped but noticed BP was trending up over the weekend. States BP at home was 140-mid 150s. Was seen in clinic today and had BP of 165/110. She states she was supposed to have an US performed in clinic but was sent to hospital instead. Reports head pressure in the frontotemporal region. Denies CP, SOB, RUQ pain, or worsening edema. States she has been on bedrest since she was diagnosed with Pre-E Primary Care Physician: Dr. Salinas FMR OB H&P: Current - Care : 2 Para: [id number] Gestational age: 34.0 Due date: 12/08/17 Dating Criteria: LMP/8.3 wk US Course/Complications: Dx Pre-eclampsia at 28 wk. - OB Labs Blood type: O RH: positive Antibody Screen: negative HIV: negative RPR: negative HepBsAg: negative Rubella: immune Gonorrhea: negative Chlamydia: negative Pap Smear: negative with negative HPV 1 hour gtt: unknown GBS: negative (on 10/20/17) H&H: 14.6/42 on 10/20/17 Platelets: 211 - First Trimester Ultrasound First trimester: 8.3 wk and 13.1 wk - Anatomy Survey Anatomy survey: normal anatomy scan. 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 - Family History Family History: HTN, DM, cancer NOS. FMR OB H&P: Medications - Current Home Medications: Medication Instructions Recorded Confirmed Type Vitamin 1 tablet PO DAILY 08/18/17 10/07/17 History Levothyroxine Sodium [Synthroid] 75 mcg PO DAILY 09/30/17 10/07/17 History NIFEdipine [Procardia XL] 30 mg PO DAILY 10/27/17 10/27/17 History Allergies/Adverse Reactions: Allergies Allergy/AdvReac Type Severity Reaction Status Date / Time amoxicillin [From Augmentin] Allergy Rash Verified 08/18/17 11:22 clavulanic acid Allergy Rash Verified 09/13/17 17:47 [From Augmentin] doxycycline Allergy Rash Verified 08/18/17 11:22 fesoterodine [From Toviaz] Allergy Hives Verified 08/18/17 11:23 nitrofurantoin Allergy Stomach Verified 08/18/17 11:21 [From Macrobid] Ache nortriptyline Allergy Rash Verified 08/18/17 11:21 FMR OB H&P: ROS - Review of Systems General: denies: fever/chills, weight/appetite/sleep changes, night sweats Eyes: reports: vision changes (blurry vision 2 weeks ago). denies: eye pain, double vision, scotomas ENT: denies: nasal congestion, rhinorrhea, ringing in ears Cardiovascular: reports: edema (unchanged). denies: chest pain, palpitation, paroxysmal nocturnal dyspnea Gastrointestinal: denies: abdominal pain, indigestion, diarrhea, constipation Genitourinary (Female): denies: incontinence, dysuria, hematuria, vaginal discharge, vaginal pain, vaginal bleeding, vaginal mass/sore Musculoskeletal: denies: pain, stiffness, decrease range of motion Neurologic: reports: headache. denies: numbness, syncope, seizures Integumentary: denies: itching, rash, lesions, discoloration Endocrine: denies: cold intolerance, heat intolerance Hematologic/Lymphatic: denies: prolonged or excessive bleeding, enlarged lymph nodes Psychological: denies: depression, anxiety FMR OB H&P: Vital Signs - Maternal Vital signs: Temp 98.4F. Pulse 90, BP range from systolic of 145-175 and diastolic 86-95. resp 16 - Heart Tones Baseline: 140 Variability: moderate Acceleration: present Deceleration: absent Wilhoit contractions every: none FMR OB H&P: Physical Exam - Physical Exam General: NAD, awake, alert and oriented HEENT: normocephalic and atraumatic, MMM, conjunctiva clear, no scleral icterus Neck: supple, FROM Heart: RRR, normal S1/S2, no murmurs/rubs/gallops, no edema General: CTAB, no respiratory distress, no wheezing Abdomen: soft, gravid Deviation from normal: mild TTP LUQ without guarding or rebound Musculoskeletal: pulses present, FROM in all four extremities Neurological: cranial nerves II through XII intact, sensation to pain,touch and proprioception grossly normal, DTR +2 (patellar) Skin: no rash, good tugor, capillary refill <2 seconds Lymphatic: no unusual bruising or bleeding, no purpura Psychiatric: intact recent and remote memory, good judgement and insight - Pelvic Exam Deviation from normal: deferred FMR OB H&P: Results - Labs Lab results: Laboratory Results - last 24 hr 10/27/17 10/27/17 10:45 10:45 WBC 8.9 RBC 4.66 Hgb 14.2 Hct 42.5 MCV 91.3 MCH 30.6 MCHC 33.5 RDW 13.2 Plt Count 211 MPV 7.2 L Neutrophils % 51.2 Lymphocytes % 37.9 Monocytes % 8.9 Eosinophils % 1.2 Basophils % 0.8 Neutrophils # 4.6 Lymphocytes # 3.4 Monocytes # 0.8 H Eosinophils # 0.1 Basophils # 0.1 Sodium 137 Potassium 4.2 Chloride 106 Carbon Dioxide 21 L Anion Gap 14 BUN 11 Creatinine 0.70 Estimated GFR (MDRD) Greater than 90 Glucose 78 Calcium 9.6 Total Bilirubin 0.3 AST 25 ALT 34 Alkaline Phosphatase 195 H Lactate Dehydrogenase 196 Serum Total Protein 6.5 Albumin 3.2 L Globulin 3.3 Albumin/Globulin Ratio 1.0 L - Imaging Imaging: BPP 10/27, ARTURO 14.0. position-transverse. FMR OB H&P: A/P - Problem List (1) Pre-eclampsia affecting , antepartum Current Visit: No Status: Acute Code(s): O14.90 - UNSPECIFIED PRE-ECLAMPSIA , UNSPECIFIED TRIMESTER Assessment and Plan: @ 34.0 wk with know Pre-E. Presents from clinic with elevated BP. CBC. CMP, and LDH unremarkable. BP trending down since arriving to L&D with most recent BP 120/80 Biophysical profile 10/27 with reactive NST. Discussed findings with Dr. Gupta who agreed with the following plan. - Continue procardia - Monitor BP q15 min on L&D for 2 more hours. If BP remains WNL, discuss importance of bed rest with patient, d/c home with continued home BP monitoring , and follow up in clinic on Wednesday for BP check, - If d/c home, will discuss signs/symptoms of severe features Discussion: Date/Time: 10/27/17 1130 This H&P was discussed with Dr. Huggins and Dr. Gupta who agree with the above documentation and plan. Attending Addendum - Attending Addendum Date/Time: 10/27/17 1318 I personally evaluated the patient and discussed the management with Dr. Glover. I agree with the History, Examination, Assessment and Plan documented above with any addition or exceptions noted below. Patient with known preeclampsia and progressively increasing BPs over the weekend. Labile BPs today with multiple severe range. Labs wnl. After discussing with Dr. Gupta, patient has received 2 rounds of steroids (4 doses) at this point, no indication to defer delivery further. Fetus breech on ultrasound today so will plan on delivery via primary LTCS this afternoon.
[2017-10-27 10:55] LABS: #Basophils 0.1 thou/uL (0.0-0.2); #Eosinphils 0.1 thou/uL (0.0-0.7); #Lymphocytes 3.4 thou/uL (1.20-3.40); #Monocytes 0.8 thou/uL (0.11-0.59); #Neutrophils 4.6 thou/uL (1.40-6.50); %Basophils 0.8 % (0.0-1.0); %Eosinophils 1.2 % (0.0-10.0); %Lymphocytes 37.9 % (21.0-51.0); %Monocytes 8.9 % (0.0-10.0); %Neutrophils 51.2 % (42.0-75.0); Hemoglobin 14.2 g/dL (12.0-16.0); Mean Corpuscular HGB CONC 33.5 g/dL (32.0-36.0); Mean Corpuscular Hemoglobin 30.6 pg (27.0-31.0); Mean Corpuscular Volume 91.3 fL (78.0-98.0); Mean Platelet Volume 7.2 fL (7.4-10.4); Platelet Count 211 thou/uL (130-400); RBC Distribution Width 13.2 % (11.5-14.5); Red Blood Cell (RBC) Count 4.66 mill/uL (4.20-5.40); White Blood Cell (WBC) Count 8.9 thou/uL (4.8-10.8)
[2017-10-27 11:05] VITALS: BMI 30.1
[2017-10-27 11:24] LABS: ALT (SGPT) 34 U/L (8-55); AST (SGOT) 25 U/L (5-34); Albumin 3.2 g/dL (3.5-5.0); Alkaline Phosphatase 195 U/L (40-150); Anion Gap 14 mmol/L (10-20); BUN (Urea Nitrogen) 11 mg/dL (7.0-18.7); Bilirubin, Total 0.3 mg/dL (0.2-1.2); Calc. Creatinine Clearance 140 mL/min (70-130); Calcium 9.6 mg/dL (7.8-10.44); Carbon Dioxide 21 mmol/L (22-29); Chloride 106 mmol/L (98-107); Estimated GFR-MDRD Greater than 90; Globulin 3.3 g/dL (2.4-3.5); Glucose 78 mg/dL (70-105); LDH 196 U/L (125-220); Potassium 4.2 mmol/L (3.5-5.1); Protein, Total 6.5 g/dL (6.0-8.3); Sodium 137 mmol/L (136-145)
--- NOTE | 2017-10-27 12:15 | ULT ---
ULTRASOUND BIOPHYSICAL PROFILE: HISTORY: A 32-year-old female with pre-eclampsia, in third trimester of . FINDINGS: breathin tone: 2 movement: 2 Amniotic fluid volume: 2 heart rate is 143 BPM. lie was initially transverse, but later breech. IMPRESSION: Normal biophysical profile score of 8/8, excluding the non-stress test. ibrahima [] POS: ROBBIE
[2017-10-27] MEDS ORDERED: Ketorolac Tromethamine 30 MG/ML VIAL ONE ×2 (13:22→17:45)
[2017-10-27] MEDS ORDERED: PROPOFOL 200 MG/20 ML VIAL ONE (13:22)
[2017-10-27] MEDS ORDERED: ePHEDrine/0.9% NaCl/PF SYRINGE 50 mg/10 ml ONE ×2 (13:22→18:04)
[2017-10-27] MEDS ORDERED: Butorphanol Tartrate 1 MG/ML VIAL SLOW IVP PRN (13:46)
[2017-10-27] MEDS ORDERED: Promethazine HCl 25 MG/ML VIAL IM PRN ×3 (13:46→19:24)
[2017-10-27] MEDS ORDERED: Acetaminophen 500 MG TAB PO PRN (13:46)
[2017-10-27] MEDS ORDERED: Ondansetron HCl/PF 4 MG/2 ML Vial IVP PRN ×3 (13:46→19:15)
[2017-10-27] MEDS ORDERED: Lactated Ringer's 1,000 ML IV SCH (14:00)
[2017-10-27] MEDS ORDERED: CEFAZOLIN/Water 2 GM/20 ML SYRINGE SLOW IVP SCH (14:00)
[2017-10-27] MEDS ORDERED: Bicitra 30 ML UDCUP PO SCH (14:00)
[2017-10-27 16:15] LABS: Hemoglobin 14.4 g/dL (12.0-16.0); Mean Corpuscular HGB CONC 34.9 g/dL (32.0-36.0); Mean Corpuscular Hemoglobin 31.7 pg (27.0-31.0); Mean Corpuscular Volume 90.9 fL (78.0-98.0); Platelet Count 214 thou/uL (130-400); RBC Distribution Width 12.9 % (11.5-14.5); Red Blood Cell (RBC) Count 4.53 mill/uL (4.20-5.40); White Blood Cell (WBC) Count 9.2 thou/uL (4.8-10.8)
[2017-10-27 16:53] LABS: HBSAg Index 0.14 S/CO (0-0.99); Hep B Surf Ag Non-Reactive S/CO (NonReactive); Syphilis Antibody Nonreactive (Nonreactive); Syphilis Antibody Index 0.03 S/CO (<1.00 Non-Reactive)
[2017-10-27] MEDS ORDERED: Fentanyl 250 MCG/5 ML VIAL ONE (17:45)
[2017-10-27] MEDS ORDERED: Oxytocin 10 UNITS/ML VIAL ONE (17:45)
[2017-10-27] MEDS ORDERED: Morphine PF 1 MG/ML SYR ONE (17:45)
[2017-10-27] MEDS ORDERED: Ondansetron HCl/PF 4 MG/2 ML Vial ONE ×2 (17:45→21:06)
[2017-10-27] MEDS ORDERED: Bupivacaine 0.75% W/DEXTROSE 8.25% 2 ML AMP ONE (17:46)
[2017-10-27] MEDS ORDERED: Lidocaine 2% PF Inj 2 ML VIAL ONE (17:56)
[2017-10-27] MEDS ORDERED: Ropivacaine 0.2% 550 ML 750 ML NERVE BLCK SCH (18:00)
[2017-10-27] MEDS ORDERED: Ketamine 50 MG/ML VIAL ONE (18:12)
[2017-10-27] MEDS ORDERED: Ropivacaine HCl/PF 750 ML in Premix Bag 1 BAG NERVE BLCK SCH (18:15)
[2017-10-27] MEDS ORDERED: PHENYLEPHRINE-NS 100 MCG/ML 10 ML SYRINGE ONE (18:26)
[2017-10-27] MEDS ORDERED: Midazolam HCl 2 mg/2 ml Vial ONE (18:31)
[2017-10-27] MEDS ORDERED: Lidocaine 1.5% w/Epi 1:200K 30 ML VIAL (Epid Use) ONE (18:36)
[2017-10-27] MEDS ORDERED: PROPOFOL 20 ML ONE (18:42)
[2017-10-27] MEDS ORDERED: Labetalol HCl 100 MG/20 ML VIAL ONE (18:44)
[2017-10-27] MEDS ORDERED: Meperidine HCl/PF 25 MG/ML VIAL SLOW IVP PRN (19:13)
[2017-10-27] MEDS ORDERED: HYDROmorphone 2 MG/ML VIAL SLOW IVP PRN (19:13)
[2017-10-27] MEDS ORDERED: Morphine 4 MG/ML VIAL ONE (19:13)
[2017-10-27] MEDS ORDERED: Magnesium Sulfate 20 gm/500 ml 20 GM/500 ML BAG ONE (19:13)
[2017-10-27] MEDS ORDERED: Naloxone HCl 0.4 mg/ml Vial IV PRN (19:15)
[2017-10-27] MEDS ORDERED: diphenhydrAMINE 50 MG/ML VIAL IVP PRN (19:15)
[2017-10-27] MEDS ORDERED: Hydrocerin (Eucerin) Cream 120 gm Jar TOP PRN (19:15)
[2017-10-27] MEDS ORDERED: Naloxone HCl 0.4 mg/ml Vial IVP PRN ×2 (19:15)
[2017-10-27] MEDS ORDERED: Communication Order-Pharmacy FS SCH (19:15)
[2017-10-27] MEDS ORDERED: Promethazine HCl 25 MG SUPP PR PRN (19:15)
[2017-10-27] MEDS ORDERED: Ketorolac Tromethamine 30 MG/ML VIAL IVP PRN (19:15)
[2017-10-27] MEDS ORDERED: diphenhydrAMINE 25 MG CAP PO PRN (19:24)
[2017-10-27] MEDS ORDERED: Lanolin Ointment 7 GM TUBE TOP PRN (19:24)
[2017-10-27] MEDS ORDERED: Calcium Gluconate 4.6 MEQ in Sodium Chloride 0.9% 100 ML IVPB PRN (19:24)
[2017-10-27] MEDS ORDERED: Bisacodyl 10 MG SUPP PR PRN (19:24)
[2017-10-27] MEDS ORDERED: Acetaminophen 325 MG TAB PO PRN (19:24)
[2017-10-27] MEDS ORDERED: Simethicone Chewable 80 MG TAB PO PRN (19:24)
[2017-10-27] MEDS ORDERED: Magnesium Sulfate 20 GM/WATER 500 ML BAG IVPB SCH (19:30)
[2017-10-27] MEDS ORDERED: Adacel (T-DAP) 0.5 ML VIAL IM ONE (20:00)
[2017-10-27] MEDS: Magnesium Sulfate 20 gm/500 ml 20 GM/500 ML BAG IVPB SCH (20:08)
[2017-10-27] MEDS: NS / Oxytocin 40 units/1000ml 1,000 ML ONE (20:10)
[2017-10-27] MEDS ORDERED: Meperidine HCl/PF 25 MG/ML VIAL ONE (21:05)
[2017-10-27] MEDS: Ondansetron HCl/PF 4 MG/2 ML Vial IVP PRN (21:16)
[2017-10-28] MEDS: Ondansetron HCl/PF 4 MG/2 ML Vial IVP PRN ×2 (00:03→10:24)
[2017-10-28] MEDS: Ferrous Sulfate 325 MG TAB PO SCH ×2 (02:45→12:54)
[2017-10-28] MEDS: Docusate Calcium (SURFAK) 240 MG CAP PO SCH ×2 (02:45→12:54)
[2017-10-28 02:59] LABS: Hemoglobin 13.2 g/dL (12.0-16.0); Mean Corpuscular HGB CONC 34.9 g/dL (32.0-36.0); Mean Corpuscular Hemoglobin 31.8 pg (27.0-31.0); Mean Corpuscular Volume 91.2 fL (78.0-98.0); Mean Platelet Volume 6.9 fL (7.4-10.4); Platelet Count 195 thou/uL (130-400); RBC Distribution Width 13.1 % (11.5-14.5); Red Blood Cell (RBC) Count 4.15 mill/uL (4.20-5.40); White Blood Cell (WBC) Count 14.1 thou/uL (4.8-10.8)
[2017-10-28 03:29] LABS: ALT (SGPT) 29 U/L (8-55); AST (SGOT) 24 U/L (5-34); Albumin 2.9 g/dL (3.5-5.0); Alkaline Phosphatase 172 U/L (40-150); Anion Gap 14 mmol/L (10-20); BUN (Urea Nitrogen) 9 mg/dL (7.0-18.7); Bilirubin, Total 0.3 mg/dL (0.2-1.2); Calc. Creatinine Clearance 140 mL/min (70-130); Carbon Dioxide 21 mmol/L (22-29); Chloride 103 mmol/L (98-107); Estimated GFR-MDRD Greater than 90; Globulin 2.9 g/dL (2.4-3.5); Glucose 140 mg/dL (70-105); Potassium 3.8 mmol/L (3.5-5.1); Protein, Total 5.8 g/dL (6.0-8.3); Sodium 134 mmol/L (136-145)
[2017-10-28] MEDS: Magnesium Sulfate 20 gm/500 ml 20 GM/500 ML BAG IVPB SCH (05:28)
[2017-10-28] MEDS ORDERED: Acetaminophen/Codeine 30-300mg Tablet PO PRN ×3 (07:15→18:04)
[2017-10-28] MEDS: NS / Oxytocin 40 units/1000ml 1,000 ML ONE (07:50)
[2017-10-28] MEDS ORDERED: Prenatal Vitamin 1 TAB PO SCH (09:00)
--- NOTE | 2017-10-28 09:41 | PDOC.OPDEL ---
OB Operative/Delivery Note Delivery Dr/Surgeon: Alonso Assist: Bhavna Pre-Delivery Diagnosis: breech, other (severe preeclampsia @ 34 weeks) Weeks gestation: 34 Anesthesia: spinal - Findings A Sex: male Weight: 4 lb 1 oz - 1 min: 7 - 5 min: 9 - Additional Findings/Plan Placenta delivered: manual removal findings: low transverse hysterotomy without extension, other ( edematous lower uterine segment) Estimated blood loss: 700ml Compilations/Other Findings: intraoperative BP 180/100s, managed with labetalol IV intraoperatively Post delivery plan: recovery in LICU (for magnesium recovery and close monitoring of BP delayed repeat entry of note not saved immediately after procedure.)
--- NOTE | 2017-10-28 09:44 | PDOC.PP ---
Post Progress Note Post Day #: 1 Subjective: feels warm, minimal pain noted with movement, no nausea, tolerating clear diet, pumping for baby, no NATURAL RESOURCES EXTENSION EDUCATOR sx PO intake tolerated: yes Flatus: yes Ambulation: yes Vital Signs (12 hours) Temp Pulse Resp BP 10/28/17 07:20 97.7 F 91 18 120/75 10/28/17 04:00 93.8 F L 74 18 10/27/17 23:24 93.8 F L 74 18 139/92 H Weight Weight 170 lb - Physical Examination General: NAD Respiratory: non-labored breathing Abdominal: no distention, appropriately TTP Fundus firm & at: below umb Extremities: negative homans (B) Skin: CS incision dry & intact (dressing CDI) Neurological: no gross focal deficits Psychiatric: A&Ox3, normal affect Result Diagrams: 10/28/17 02:48 10/28/17 02:48 Additional Labs: Post Labs Blood Type O POSITIVE 10/27/17 15:56 Hep Bs Antigen Non-Reactive S/CO (NonReactive) 10/27/17 15:56 (1) delivery delivered Code(s): O82 - ENCOUNTER FOR DELIVERY WITHOUT INDICATION Status: Acute (2) Pre-eclampsia affecting , antepartum Code(s): O14.90 - UNSPECIFIED PRE-ECLAMPSIA, UNSPECIFIED TRIMESTER Status: Acute - Assessment/Plan POD1 sp 1CS for severe PIH @ 34 weeks (sp BMX 2 courses on prior admits for same dx), and breech presentation. Last severe range BP noted during CS ( 180s/ 100s) but have been normal to mild range on magnesium recovery. PP course complicated overnight by hypothermia suspected to be a result of Duramorph after she was noted to return to euthermia with Narcan. Pt doing well now, advancing diet will continue to monitor closely. Pt is on 1gm/magnesium per hour and appears to be very sensitive to medications and their potential SE. Discussed continuing magnesium through early afternoon and discontinuing if no severe range BP or NATURAL RESOURCES EXTENSION EDUCATOR sx noted. Baby doing well in NICU. CS operative note completed but pending overnight sales support technician.
--- NOTE | 2017-10-28 13:06 | OP ---
DATE OF PROCEDURE: 10/27/2017 PREOPERATIVE DIAGNOSES: 1. A 32-year-old at 34 weeks gestation. 2. Severe preeclampsia. 3. Breech presentation. POSTOPERATIVE DIAGNOSIS: Status post primary low transverse section. SURGEON: Elvin Gupta DO NURSES' REGISTRY DIRECTOR: Patti Huggins MD ANESTHESIA: Spinal per Dr. Landaverde. COMPLICATIONS: None. ESTIMATED BLOOD LOSS: 600 mL quantitative blood loss pending. PROCEDURES PERFORMED: Primary low transverse section. FINDINGS: 1. Male , Apgars 7/9, weight 4lbs, 1 ounce 2. Normal appearing tubes and ovaries, edematous lower uterine segment 3. Abnormal placentation, calcified, adherent to anterior aspect of the uterus but able to be 4. Low transverse hysterotomy without extension 5. Fundus firm and surgical sites hemostatic INDICATIONS FOR PROCEDURE: Ms. Mariya Chris is a 32-year-old at 34 weeks who has been closely managed outpatient with induced hypertension and preeclampsia. DESCRIPTION OF PROCEDURE: The patient was seen in the clinic for scheduled visit today. She reported an increase in the baseline of her blood pressures and increased frequency in the severe range of blood pressures since Wednesday. In the clinic, the patient's blood pressure was in the 160s/100s on intake as well as on repeat. She also endorsed a dull headache. The patient was sent to Labor and Delivery for observation and further evaluation. In labor and delivery, the patient was noted to have labile blood pressures from mild range to severe range. She had no laboratory abnormalities and on ultrasound, the was noted to be in breech position. Of note, the patient had previously been admitted and received betamethasone for lung maturity at approximately 27-28 weeks' gestation as well as a repeat course with the patient 's increasing blood pressure and new onset CONSUMER ELECTRONIC RETAIL SPECIALIST symptoms in the setting of blood pressure that was previously controlled with Procardia. The indication for delivery was reviewed with the patient and she agreed with the plan of care. PROCEDURE DETAILS: The patient was taken back to the OR with IV fluids running. Once she was in the OR, she received spinal anesthesia. After the anesthesia was placed, she was placed in the dorsal supine position with a left lateral tilt. Gomez catheter was placed. SCDs were placed on the lower extremities and the abdomen was prepped and draped in normal fashion for section. Surgeons were gowned and gloved and the anesthesia was tested and found to be adequate. A Pfannenstiel skin incision was made with a scalpel. Skin incision was carried down through the subcutaneous tissue to the fascia. Once the fascia was reached, it was incised in the midline and extended superior laterally using curved Vergara scissors. Karl clamps were placed at the superior border of the fascia, which was sharply and bluntly dissected off the rectus abdominis muscles in both caudad and cephalad direction. After adequate space for delivery was made with this dissection, the muscles were bluntly in the midline. The peritoneum was bluntly entered and stretched laterally. An Ranulfo O retractor was placed into the abdominal peritoneal cavity for retraction, visualization and protection of the wound. A bladder flap was created with the Metzenbaum scissors and the bladder was dissected away from the planned hysterotomy site. Of note, there was proximal 4-5 cm x 2 cm raised edematous area to the uterine serosa that palpated soft the level of the myometrium; however, this defect was less prominent after the delivery of the and placenta and was less pronounced after closure of the hysterotomy. A low transverse hysterotomy was made with the scalpel. The uterus was bluntly entered and stretched laterally. The infant's feet were grasped at the level of the hysterotomy and amniotomy was performed with gentle fundal pressure. The lower extremities were delivered to the level of the hip, the infant was then grasped in the usual breech method at the anterior superior iliac spine and with gentle rotation of the body, the arms were delivered spontaneously as well as the head. After the infant was delivered, the nose and mouth were suctioned. Delayed cord clamping was achieved with approximately 20-30 seconds and to aid before the cord was clamped and cut. After the cord was cut, the infant was handed off to the NICU team in attendance for delivery. Cord blood was collected. The infant was noted to have vigorous cry at the warmer. The placenta was delivered with gentle extraction as well as manual removal as it was noted to be densely adhered to the anterior myometrium and calcified in texture. After the placenta was removed, uterus was exteriorized, massaged to firm, and cleared of clot and debris with a clean and dry lap. Uterus was then returned to the abdominal cavity. Oozing from the hysterotomy was then closed in a running locked fashion followed by second imbricating layer using Monocryl suture. After the 2-layer closure was complete, a small area of bleeding was noted in the left corner of the incision. This area was oversewn with a series of figure -of-eight sutures until hemostasis was noted. After the hysterotomy was closed and this was found to be hemostatic, the hysterotomy and pericolic gutters were irrigated and suctioned dry. Hysterotomy was inspected again, and no areas of bleeding noted. The Ranulfo O retractor was removed from the abdominal cavity. The rectus muscles and fascia were inspected and any signs of bleeding were controlled with Bovie cauterization. The fascia was then reapproximated from corner to corner with PDS suture in a running fashion. The subcutaneous tissue was reapproximated with plain gut suture. Of note, prior to closure of the fascia, the peritoneal layer was reapproximated in anticipation of placement of On-Q pump. However, On-Q pump placement was terminated as the catheter tips were not available at the time of the section. After the abdominal wall layers were closed, the skin was closed with 4-0 Monocryl and dressed with Dermabond dressing. The uterine fundus was noted to be firm. The patient was clean, dry, and taken to the recovery room in good condition. Of note, during the section, she was noted to have blood pressures in the 180s/100s. She was given labetalol by the STATIONARY ENGINEER SUPERVISOR to ensure blood pressures during that time. Magnesium recovery was discussed with the patient as well as the father of the baby as a plan of care on . Repeat labs have been ordered for the morning and she will be watched closely throughout the evening. REBECCA
--- NOTE | 2017-10-28 13:09 | ADD-OP ---
ADDENDUM: DATE OF SERVICE: 10/27/2017 I was present and scrubbed to assist the primary low transverse for severe preeclampsia and breech presentation with Dr. Elvin Gupta. Please see her note for full details.
[2017-10-28] MEDS ORDERED: Adacel (T-DAP) 0.5 ML VIAL IM ONE (18:04)
[2017-10-28] MEDS ORDERED: Acetaminophen 325 MG TAB PO PRN (18:04)
[2017-10-28] MEDS ORDERED: Lanolin Ointment 7 GM TUBE TOP PRN (18:04)
[2017-10-28] MEDS ORDERED: Bisacodyl 10 MG SUPP PR PRN (18:04)
[2017-10-28] MEDS ORDERED: Ondansetron ODT 4 MG TAB SL PRN (19:00)
[2017-10-28] MEDS ORDERED: Ondansetron ODT 4 MG TAB SL SCH (19:00)
[2017-10-28] MEDS ORDERED: Ibuprofen 800 MG TAB PO SCH (22:00)
[2017-10-29] MEDS: Acetaminophen/Codeine 30-300mg Tablet PO PRN ×4 (04:04→22:12)
--- NOTE | 2017-10-29 08:17 | PDOC.PP ---
Post Progress Note Post Day #: 2 Subjective: pumping but not sure if she is using it correctly, ambulating, tolerating regular diet, no CELL ATTENDANT sx PO intake tolerated: yes Flatus: yes Ambulation: yes Vital Signs (12 hours) Temp Pulse Resp BP 10/29/17 06:00 98.5 F 101 H 18 124/83 10/29/17 04:00 98.6 F 101 H 18 10/29/17 01:20 98.4 F 95 18 140/85 10/29/17 00:00 98.4 F 92 18 Weight Weight 170 lb - Physical Examination General: NAD Respiratory: non-labored breathing Abdominal: no distention, appropriately TTP Fundus firm & at: below umb Extremities: negative homans (B) Skin: no rash (dressing CDI) Neurological: no gross focal deficits Psychiatric: normal affect Result Diagrams: 10/28/17 02:48 10/28/17 02:48 Additional Labs: Post Labs Blood Type O POSITIVE 10/27/17 15:56 Hep Bs Antigen Non-Reactive S/CO (NonReactive) 10/27/17 15:56 (1) delivery delivered Code(s): O82 - ENCOUNTER FOR DELIVERY WITHOUT INDICATION Status: Acute (2) Pre-eclampsia affecting , antepartum Code(s): O14.90 - UNSPECIFIED PRE-ECLAMPSIA, UNSPECIFIED TRIMESTER Status: Acute - Assessment/Plan POD2, doing well, mild pain but declined pain meds overnight, discussed scheduled ibuprofen and tylenol #3 PRN, BP mild range to normal. Discussed continue close monitor BP, possible DC to [facility] this weekend.
[2017-10-29] MEDS: Docusate Calcium (SURFAK) 240 MG CAP PO SCH ×3 (09:05→22:12)
[2017-10-29] MEDS: Simethicone Chewable 80 MG TAB PO PRN ×2 (09:06→17:04)
[2017-10-29] MEDS: Prenatal Vitamin 1 TAB PO SCH (09:06)
[2017-10-29] MEDS: Ibuprofen 800 MG TAB PO SCH ×3 (09:06→17:04)
[2017-10-29] MEDS ORDERED: NIFEdipine XL 30 MG TAB PO SCH (12:45)
[2017-10-29] MEDS ORDERED: Sodium Chloride 0.9% 10 ML ONE ×2 (17:00→18:09)
[2017-10-29] MEDS ORDERED: hydrALAZINE 20 MG/ML VIAL SLOW IVP PRN (18:03)
[2017-10-30] MEDS: Ibuprofen 800 MG TAB PO SCH ×3 (02:05→17:40)
--- NOTE | 2017-10-30 08:45 | PDOC.EVN ---
Event Note - Event Note Event Note: bonding supervisor note: Procardia 30mg po daily XL BP watch today
[2017-10-30] MEDS ORDERED: NIFEdipine XL 30 MG TAB PO SCH (09:00)
[2017-10-30] MEDS: Prenatal Vitamin 1 TAB PO SCH (09:05)
[2017-10-30] MEDS: Docusate Calcium (SURFAK) 240 MG CAP PO SCH (09:05)
[2017-10-30] MEDS: Acetaminophen/Codeine 30-300mg Tablet PO PRN (10:20)
--- NOTE | 2017-10-30 12:21 | PRG ---
DATE OF SERVICE: 10/30/2017 SUBJECTIVE: The patient is postoperative day #3, status post a primary for severe preeclam psia and breech presentation. Her postoperative course has been complicated with elevated blood pres sures and is on Procardia-XL 30 mg a day and received hydralazine yesterday IV for breakthrough, last given at 6, yesterday evening. Patient reports that she is having a mild headache. She reports garland t she had a severe headache when she first started the Procardia , but also admits that she had been on it for a couple weeks before delivery without problems. She is, otherwise, tolerating p .o., voiding on her own, having decreased lochia and good pain control. PHYSICAL EXAMINATION: VITAL SIGNS: Currently, blood pressure is 132/75, temperature 98.3, pulse of 112, respiratory rate o f 18. She had a blood pressure max, yesterday evening at 6, at 169/96, at which time she was given a dose of 10 mg hydralazine IV. GENERAL: She appears to be in no acute distress. She is alert and oriented, cooperative and pleasan t to interact with. HEAD: Normocephalic, atraumatic. ABDOMEN: Fundus is firm. Incision is clean, dry, and intact. EXTREMITIES: Nontender, but are edematous and symmetrical. ASSESSMENT AND PLAN: The patient is postoperative day #3, status post a primary section for breech presentation and severe preeclampsia. She had severe pressures as early as yesterday evening and anticipate continued inpatient care. She is currently on 30 mg of Procardia daily, first starte d yesterday afternoon. We will continue to monitor her blood pressures as this now should be taking effect. Her blood pressures since 6 have been under good control, and anticipate discharge tomorrow.
[2017-10-30] MEDS: Simethicone Chewable 80 MG TAB PO PRN (15:34)
--- NOTE | 2017-10-31 02:13 | PDOC.PP ---
Post Progress Note Post Day #: 4 Subjective: Had BM, HX HAs but none currently. Ivan PO PO intake tolerated: yes Flatus: yes Ambulation: yes Vital Signs (12 hours) Temp Pulse Resp 10/30/17 20:00 98.1 F 97 18 10/30/17 16:05 98.1 F 97 18 Weight Weight 170 lb BP while I was at bedside was 166/96 (@0210) - Physical Examination General: NAD Cardiovascular: no m/r/g Respiratory: clear to auscultation bilaterally Abdominal: + bowel sounds, lochia, no distention, appropriately TTP Extremities: negative homans (B) Skin: CS incision dry & intact (sutured, incision has some superficial brusining , nut intact...no induration) Neurological: no gross focal deficits Psychiatric: A&Ox3, normal affect Result Diagrams: 10/28/17 02:48 10/28/17 02:48 Additional Labs: Post Labs Blood Type O POSITIVE 10/27/17 15:56 Hep Bs Antigen Non-Reactive S/CO (NonReactive) 10/27/17 15:56 (1) Pre-eclampsia affecting , antepartum Code(s): O14.90 - UNSPECIFIED PRE-ECLAMPSIA, UNSPECIFIED TRIMESTER Status: Acute - Assessment/Plan S/P Primary CS at 34 weeks. She was on 30mg procardia XL predelivery, and restarted on 30mg xl . BP last (@210) was 166/96 on 30XL. I discussed her BPs with her...other BPs were OK. As she was severe preeclpamsia , and still with some labile BPs, we will increase procardia to 60mgXL with the AM dose and follow BPs today, wednesday the . Probable dsch once BPs are less labile and non-severe.
[2017-10-31] MEDS: Ibuprofen 800 MG TAB PO SCH ×4 (05:49→21:48)
[2017-10-31] MEDS: Docusate Calcium (SURFAK) 240 MG CAP PO SCH ×3 (05:50→21:54)
[2017-10-31] MEDS: NIFEdipine XL 60 MG TAB PO SCH (08:05)
[2017-10-31] MEDS: Prenatal Vitamin 1 TAB PO SCH (08:06)
[2017-10-31 22:10] VITALS: TEMP 98.2
[2017-11-01] MEDS: Ibuprofen 800 MG TAB PO SCH ×2 (05:32→13:48)
[2017-11-01] MEDS: NIFEdipine XL 60 MG TAB PO SCH (09:03)
[2017-11-01] MEDS: Docusate Calcium (SURFAK) 240 MG CAP PO SCH (09:03)
[2017-11-01] MEDS: Prenatal Vitamin 1 TAB PO SCH (09:04)
[2017-11-01 11:56] VITALS: BP 139/87
--- NOTE | 2017-11-01 13:34 | PDOC.PP ---
Post Progress Note Post Day #: 5 Subjective: no sx pih, pain controlled. PO intake tolerated: yes Flatus: yes Ambulation: yes Vital Signs (12 hours) Temp Pulse Resp BP BP BP 11/01/17 11:30 119 H 17 139/87 11/01/17 09:03 98 140/90 11/01/17 08:45 98.2 F 98 20 11/01/17 08:00 98.2 F 98 20 140/90 11/01/17 05:30 106 H 158/92 H 11/01/17 02:30 100 141/90 H Weight Weight 170 lb - Physical Examination General: NAD Cardiovascular: RRR Respiratory: non-labored breathing Abdominal: no distention, appropriately TTP Fundus firm & at: umb-2 Skin: CS incision dry & intact ( bruising present) Neurological: no gross focal deficits Psychiatric: normal affect Result Diagrams: 10/28/17 02:48 10/28/17 02:48 Additional Labs: Post Labs Blood Type O POSITIVE 10/27/17 15:56 Hep Bs Antigen Non-Reactive S/CO (NonReactive) 10/27/17 15:56 (1) delivery delivered Code(s): O82 - ENCOUNTER FOR DELIVERY WITHOUT INDICATION Status: Acute (2) Pre-eclampsia affecting , antepartum Code(s): O14.90 - UNSPECIFIED PRE-ECLAMPSIA, UNSPECIFIED TRIMESTER Status: Acute - Assessment/Plan POD5 s/p PCS for breech at 34w 2/2 Severe PIH. VSSAF BP improved nl mild after incr procardia to 60mg yesterday, no sx pih, s/p Mag. Met all postop milestones Breastpumping. Rh pos RImm DC home fu on Wednesday for BP check.
== END 2017-11-01 14:40 | disposition home or self-care (01) | DRG 766 ==
LOC: L&D/OP 09:30 → L&D 15:09 → 3SW 10-28 18:03
PROVIDERS: ADMIT Obstetrics & Gynecology; ATTEND Obstetrics & Gynecology
PROC: 10D00Z1 Extraction of Products of Conception, Low, Open Approach (ICD-10-PCS; principal; 2017-10-27)
DX: O14.14 Severe pre-eclampsia complicating childbirth (principal); O32.1XX0 Maternal care for breech presentation, not applicable or unspecified; O43.893 Other placental disorders, third trimester; O9A.23 Injury, poisoning and certain other consequences of external causes complicating the puerperium; R68.0 Hypothermia, not associated with low environmental temperature; T40.2X5A Adverse effect of other opioids, initial encounter; Z37.0 Single live birth; Z3A.34 34 weeks gestation of pregnancy; Y92.239 Unspecified place in hospital as the place of occurrence of the external cause
CPT/HCPCS: 36415; 51702; 59025; 76819; 80053; 83615; 83735; 85025; 85027; 86780; 86850; 86900; 86901; 87340; 88307; 99285; A4216; J0360; J1885; J2175; J2250; J2270; J2274; J2310; J2405; J2590; J2704; J2795; J3010; J3475; J3490; Q0162

== ENCOUNTER 2019-02-07 05:42 | Inpatient (IN) | payer OTHER ==
[2019-02-07] MEDS ORDERED: hydrALAZINE 20 MG/ML VIAL SLOW IVP PRN ×2 (06:00→11:05)
[2019-02-07] MEDS ORDERED: Bicitra 30 ML UDCUP PO SCH (06:00)
[2019-02-07] MEDS ORDERED: Promethazine HCl 25 MG/ML VIAL IM PRN ×3 (06:00→11:05)
[2019-02-07] MEDS ORDERED: Ondansetron PF 4 MG/2 ML Vial IVP PRN ×3 (06:00→11:05)
[2019-02-07] MEDS ORDERED: CEFAZOLIN 2 GM in Premix Bag 1 BAG IVPB SCH (06:00)
[2019-02-07 06:39] LABS: Hemoglobin 13.9 g/dL (12.0-16.0); Mean Corpuscular HGB CONC 35.3 g/dL (32.0-36.0); Mean Corpuscular Hemoglobin 30.9 pg (27.0-31.0); Mean Corpuscular Volume 87.6 fL (78.0-98.0); Platelet Count 248 thou/uL (130-400); RBC Distribution Width 12.5 % (11.5-14.5); White Blood Cell (WBC) Count 8.7 thou/uL (4.8-10.8)
[2019-02-07 06:40] VITALS: BMI 30.9
[2019-02-07] MEDS: Lactated Ringer's 1,000 ML IV SCH ×2 (06:41→20:37)
[2019-02-07 06:59] LABS: ALT (SGPT) 15 U/L (8-55); AST (SGOT) 20 U/L (5-34); Albumin 3.5 g/dL (3.5-5.0); Alkaline Phosphatase 243 U/L (40-110); Anion Gap 16 mmol/L (10-20); BUN (Urea Nitrogen) 7 mg/dL (7.0-18.7); Bilirubin, Total 0.4 mg/dL (0.2-1.2); Calc. Creatinine Clearance 142 mL/min (70-130); Calcium 9.2 mg/dL (7.8-10.44); Carbon Dioxide 17 mmol/L (22-29); Chloride 108 mmol/L (98-107); Estimated GFR-MDRD Greater than 90; Globulin 3.5 g/dL (2.4-3.5); Glucose 84 mg/dL (70-105); Potassium 3.9 mmol/L (3.5-5.1); Sodium 137 mmol/L (136-145)
[2019-02-07 07:18] LABS: Syphilis Antibody Nonreactive (Nonreactive); Syphilis Antibody Index 0.04 S/CO (<1.00 Non-Reactive)
--- NOTE | 2019-02-07 07:28 | PDOC.LDHP ---
Labor and Delivery H&P Chief complaint: scheduled section HPI: 33yo at 37w0d by LMP here for RCS for GHTN and A1GDM. No complaints, no sx PIH. Current gestational age (weeks): 37 Due date: 02/24/19 Dating criteria: last menstrual period Grav: 3 Para: 1 Current complications: gestational diabetes Abnormal US findings: No Past Medical History: anxiety Current medications: pre-deandra vitamins, other (asa) Previous surgical history: low tranverse CS Allergies/Adverse Reactions: Allergies Allergy/AdvReac Type Severity Reaction Status Date / Time amoxicillin [From Augmentin] Allergy Rash Verified 08/18/17 11:22 clavulanic acid Allergy Rash Verified 09/13/17 17:47 [From Augmentin] doxycycline Allergy Rash Verified 08/18/17 11:22 fesoterodine [From Toviaz] Allergy Hives Verified 08/18/17 11:23 nitrofurantoin Allergy Stomach Verified 08/18/17 11:21 [From Macrobid] Ache nortriptyline Allergy Rash Verified 08/18/17 11:21 Social history: none - Physical Exam Vital signs reviewed and normal: yes Abnormal vital signs: mild range BPs General: NAD Heart: RRR Lungs: CTAB Abdomen: gravid Extremeties: no edema FHT: category 1 Christoval contractions every: none - OB Labs Blood type: O RH: positive Antibody Screen: negative HIV: negative RPR: negative HEPSAg: negative 1 hour GCT: positive 3 hour GTT: positive for GDM GBS: unknown Urine drug screen: negative Rubella: immune - Assessment L&D Assessment: scheduled repeat section - Plan Plan: admit to L&D, to OR for section, informed consent obtained, anesthesia consult for pain management -: Mag for severe features, none present at this time, nl labs today.
--- NOTE | 2019-02-07 07:30 | PDOC.OPDEL ---
OB Operative/Delivery Note Delivery Dr/Surgeon: Rita Assist: Alonso Pre-Delivery Diagnosis: scheduled section (GHTN, GDM) Procedure/Post Delivery Dx: repeat low transverse CS Weeks gestation: 37 Anesthesia: spinal - Additional Findings/Plan Placenta delivered: spontaneous findings: low transverse hysterotomy without extension, normal uterus, normal tubes, normal ovaries Estimated blood loss: 500 Post delivery plan: routine recovery
[2019-02-07] MEDS ORDERED: MORPHINE 5 MG/10 ML PF VIAL ONE (07:37)
[2019-02-07] MEDS ORDERED: Fentanyl 100 MCG/2 ML VIAL ONE (07:37)
[2019-02-07] MEDS ORDERED: PHENYLEPHRINE-NS 100 MCG/ML 10 ML SYRINGE ONE (07:39)
[2019-02-07] MEDS ORDERED: Ondansetron PF 4 MG/2 ML Vial ONE ×2 (07:52→09:40)
[2019-02-07] MEDS ORDERED: Oxytocin 10 UNITS/ML VIAL ONE (07:57)
[2019-02-07 08:45] LABS: Hep B Surf Ag Non-Reactive S/CO (NonReactive)
[2019-02-07 08:46] LABS: HBSAg Index 0.12 S/CO (0-0.99)
[2019-02-07] MEDS ORDERED: Meperidine HCl/PF 25 MG/ML VIAL SLOW IVP PRN (09:20)
[2019-02-07] MEDS ORDERED: Ondansetron HCl/PF 4 MG/2 ML Vial IVP PRN (09:20)
[2019-02-07] MEDS ORDERED: L&D-Morphine 4 MG/ML VIAL SLOW IVP PRN (09:20)
[2019-02-07] MEDS ORDERED: Naloxone HCl 0.4 mg/ml Vial IV PRN (09:20)
[2019-02-07] MEDS ORDERED: diphenhydrAMINE 50 MG/ML VIAL IVP PRN (09:20)
[2019-02-07] MEDS ORDERED: Promethazine HCl 25 MG SUPP PR PRN (09:20)
[2019-02-07] MEDS ORDERED: Naloxone HCl 0.4 mg/ml Vial IVP PRN ×2 (09:20)
[2019-02-07] MEDS ORDERED: HYDROmorphone 2 MG/ML VIAL SLOW IVP PRN (09:20)
[2019-02-07] MEDS ORDERED: Ketorolac Tromethamine 30 MG/ML VIAL IVP SCH (09:30)
[2019-02-07] MEDS ORDERED: Communication Order-Pharmacy FS SCH (09:30)
[2019-02-07] MEDS ORDERED: Meperidine HCl/PF 25 MG/ML VIAL ONE (09:32)
[2019-02-07] MEDS ORDERED: Promethazine HCl 25 MG/ML VIAL ONE (09:40)
[2019-02-07] MEDS ORDERED: Ketorolac Tromethamine 30 MG/ML VIAL ONE (10:29)
[2019-02-07] MEDS: Ketorolac Tromethamine 30 MG/ML VIAL IVP PRN ×2 (10:31→16:59)
[2019-02-07] MEDS ORDERED: Zolpidem Tartrate 5 MG TAB PO PRN (11:05)
[2019-02-07] MEDS ORDERED: Lanolin Ointment 7 GM TUBE TOP PRN (11:05)
[2019-02-07] MEDS ORDERED: Bisacodyl 10 MG SUPP PR PRN (11:05)
[2019-02-07] MEDS ORDERED: Acetaminophen 325 MG TAB PO PRN (11:05)
[2019-02-07] MEDS ORDERED: Adacel (T-DAP) 0.5 ML SYRINGE IM ONE (11:05)
[2019-02-07] MEDS ORDERED: diphenhydrAMINE 25 MG CAP PO PRN (11:05)
[2019-02-07] MEDS ORDERED: Docusate Calcium (SURFAK) 240 MG CAP PO SCH (11:15)
[2019-02-07] MEDS ORDERED: Ferrous Sulfate 325 MG TAB PO SCH (11:15)
[2019-02-07] MEDS ORDERED: Prenatal Vitamin 1 TAB PO SCH (11:15)
[2019-02-07] MEDS ORDERED: NS / Oxytocin 40 units/1000ml 1,000 ML ONE (11:51)
--- NOTE | 2019-02-07 14:55 | OP ---
DATE OF PROCEDURE: 02/07/2019 PREOPERATIVE DIAGNOSES: 1. Intrauterine at 37 weeks and 0 days. 2. Gestational hypertension. 3. A1 gestational diabetes mellitus. 4. Prior section x1, declines trial of labor. POSTOPERATIVE DIAGNOSES: 1. Intrauterine at 37 weeks and 0 days. 2. Gestational hypertension. 3. A1 gestational diabetes mellitus. 4. Prior section x1, declines trial of labor. PROCEDURE PERFORMED: Repeat low-transverse section via Pfannenstiel skin incision. RADIATION THERAPY TECHNICIAN SURGEON: Elvin Gupta DO, MS. ANESTHESIA: Spinal. ESTIMATED BLOOD LOSS: 500 mL. COMPLICATIONS: None. DRAINS: Gomez catheter. PATHOLOGY: Placenta. FINDINGS: Male , cephalic presentation, clear amniotic fluid. Apgars 8 and 9. Weight is pending. Low transverse hysterotomy without extension. Normal uterus, ovaries, and tubes. A keloid scar that was excised and reapproximated on the skin. DESCRIPTION OF PROCEDURE: The patient was taken to the operating room, where spinal anesthesia was obtained without difficulty. The patient was prepped and draped in a sterile fashion with dorsal supine position with leftward tilt. After ensuring adequacy of anesthesia, a Pfannenstiel skin incision was made around the patient's previous scar and the scar was excised with a knife using Allis clamps. The subcutaneous tissue was incised as well as the fascia with the knife. The fascia was extended laterally with the Vergara scissors. The superior aspect of the fascia was tented with 2 Karl's and dissected off the rectus with the Vergara. The inferior aspect of the fascia was tented with 2 Karl's and dissected off the rectus down to the pubic symphysis. The peritoneum was bluntly entered into and manually retracted. The Ranulfo O retractor was placed. The vesicouterine peritoneum was incised with the Metzenbaum's. The lower uterine segment was incised in a transverse fashion and extended with a Nogueira maneuver. The 's head was brought to the hysterotomy and delivered atraumatically. The 's cord was clamped and handed to awaiting Marvel Team. The placenta was allowed to spontaneously deliver. The uterus was exteriorized, cleared of all clots and debris and the posterior cul-de-sac was lapped out. The uterus was placed back into the abdomen. The hysterotomy was repaired with a #1 Monocryl in a running locking fashion. An additional [id number] stitch was required over the right apex for hemostasis. The pelvis was irrigated and suctioned and the hysterotomy was again noted to be hemostatic. The Ranulfo O retractor was removed and the rectus muscles were examined and cauterized of any bleeders. The fascia was reapproximated with a 0 PDS x2 sutures with excellent reapproximation. The subcutaneous tissue was irrigated and cauterized of any bleeders and reapproximated with 2-0 plain gut in running fashion. The skin was closed with 4-0 Monocryl in subcuticular fashion. Dermabond was applied as well as a pressure dressing. The patient tolerated the procedure well. Sponge, lap, and needle counts were correct x2. The patient was taken to recovery room in stable condition. The patient received Ancef 2 g prior to procedure. Job ID: [id number]
[2019-02-07] MEDS: Ferrous Sulfate 325 MG TAB PO SCH (18:37)
[2019-02-07] MEDS ORDERED: HYDROcodone/Acetaminophen 5/325 mg Tablet PO PRN (21:30)
[2019-02-07] MEDS: Docusate Calcium (SURFAK) 240 MG CAP PO SCH (23:38)
[2019-02-08] MEDS: Ketorolac Tromethamine 30 MG/ML VIAL IVP PRN (01:18)
[2019-02-08] MEDS: Simethicone Chewable 80 MG TAB PO PRN ×3 (01:22→20:31)
[2019-02-08 04:45] LABS: Hemoglobin 10.4 g/dL (12.0-16.0); Mean Corpuscular HGB CONC 34.3 g/dL (32.0-36.0); Mean Corpuscular Hemoglobin 30.8 pg (27.0-31.0); Mean Corpuscular Volume 89.8 fL (78.0-98.0); Mean Platelet Volume 7.3 fL (7.4-10.4); Platelet Count 186 thou/uL (130-400); RBC Distribution Width 12.5 % (11.5-14.5); Red Blood Cell (RBC) Count 3.39 mill/uL (4.20-5.40); White Blood Cell (WBC) Count 9.4 thou/uL (4.8-10.8)
[2019-02-08] MEDS: HYDROcodone/Acetaminophen 5/325 mg Tablet PO PRN ×4 (05:15→20:26)
[2019-02-08] MEDS: Ferrous Sulfate 325 MG TAB PO SCH ×2 (07:47→14:56)
[2019-02-08] MEDS: Ibuprofen 800 MG TAB PO SCH ×3 (08:27→21:59)
[2019-02-08] MEDS: Docusate Calcium (SURFAK) 240 MG CAP PO SCH ×2 (08:27→20:28)
[2019-02-08] MEDS: Prenatal Vitamin 1 TAB PO SCH (08:27)
--- NOTE | 2019-02-08 13:16 | PDOC.PP ---
Post Progress Note Post Day #: 1 Subjective: Pt doing well on PPD1. Pain is well controlled. She has minimal lochia. She is currently pumping and expressing breast mild. She is up and ambulatory at this time. She has started to pass gas. She had fong out a few hours before and has not yet voided but is about to try. She has no chest pain, SOB, headache, or double/blurry vision. PO intake tolerated: yes Flatus: yes Ambulation: yes Vital Signs (12 hours) Temp Pulse Resp BP Pulse Ox 02/08/19 12:01 98.0 F 95 20 132/79 02/08/19 08:26 98.2 F 97 20 141/84 H 99 02/08/19 05:00 98.2 F 86 20 139/94 H 98 Weight Weight 169 lb - Physical Examination General: NAD Cardiovascular: RRR Respiratory: non-labored breathing Abdominal: + bowel sounds, lochia, no distention, appropriately TTP Fundus firm & at: 1 cm below umbilicus Extremities: negative homans (B) Skin: CS incision dry & intact, no rash Neurological: no gross focal deficits Psychiatric: A&Ox3, normal affect Result Diagrams: 02/08/19 04:18 02/07/19 06:25 Additional Labs: Post Labs Blood Type O POSITIVE 02/07/19 06:25 Hep Bs Antigen Non-Reactive S/CO (NonReactive) 02/07/19 06:25 - Assessment/Plan Pt doing well on POD1. Pain well controlled. She will try to void now that fong is removed and she is up and ambulatory. She has had some mild range pressures but no associated symptoms. We will plan to continue to monitor BPs at this time and continue routine care.
[2019-02-09] MEDS: Ibuprofen 800 MG TAB PO SCH ×3 (05:43→21:20)
--- NOTE | 2019-02-09 08:01 | PDOC.PP ---
Post Progress Note Post Day #: 2 PO intake tolerated: yes Flatus: yes Ambulation: yes Vital Signs (12 hours) Temp Pulse Resp BP Pulse Ox 02/09/19 04:16 97.8 F 89 18 135/81 97 02/09/19 01:22 97.7 F 104 H 18 122/76 95 02/08/19 20:33 97.8 F 95 16 131/78 96 Weight Weight 169 lb - Physical Examination General: NAD Respiratory: non-labored breathing Abdominal: no distention, appropriately TTP Fundus firm & at: umb-2 Skin: CS incision dry & intact, no rash Neurological: no gross focal deficits Psychiatric: normal affect Result Diagrams: 02/08/19 04:18 02/07/19 06:25 Additional Labs: Post Labs Blood Type O POSITIVE 02/07/19 06:25 Hep Bs Antigen Non-Reactive S/CO (NonReactive) 02/07/19 06:25 - Assessment/Plan POD2 s/p RCS at 37w 2/2 GHTN and GDM VSSAF Doing well met all milestones, pain controlled BP nl-mild, no sx PIH. Will cont BP monitoring as outpt Breastpumping, in NICU on CPAP Rh pos RImm Cont postop care, likely home tomorrow.
[2019-02-09] MEDS: Ferrous Sulfate 325 MG TAB PO SCH ×2 (08:49→17:11)
[2019-02-09] MEDS: Docusate Calcium (SURFAK) 240 MG CAP PO SCH ×2 (09:15→21:20)
[2019-02-09] MEDS: Prenatal Vitamin 1 TAB PO SCH (09:15)
[2019-02-09] MEDS: HYDROcodone/Acetaminophen 5/325 mg Tablet PO PRN (11:42)
[2019-02-09] MEDS: Simethicone Chewable 80 MG TAB PO PRN (11:43)
[2019-02-10] MEDS: Ibuprofen 800 MG TAB PO SCH ×3 (06:08→21:18)
[2019-02-10] MEDS: Docusate Calcium (SURFAK) 240 MG CAP PO SCH ×2 (08:54→21:18)
[2019-02-10] MEDS: Prenatal Vitamin 1 TAB PO SCH (08:54)
[2019-02-10] MEDS: HYDROcodone/Acetaminophen 5/325 mg Tablet PO PRN (08:57)
[2019-02-10] MEDS: Ferrous Sulfate 325 MG TAB PO SCH ×2 (08:58→17:22)
--- NOTE | 2019-02-10 12:26 | PDOC.PP ---
Post Progress Note Post Day #: 3 PO intake tolerated: yes Flatus: yes Ambulation: yes Vital Signs (12 hours) Temp Pulse Resp BP Pulse Ox 02/10/19 07:50 97.8 F 97 18 135/81 99 02/10/19 05:10 97.6 F 97 16 143/88 H Weight Weight 169 lb - Physical Examination General: NAD Respiratory: non-labored breathing Abdominal: no distention, appropriately TTP Fundus firm & at: umb-2 Skin: CS incision dry & intact Neurological: no gross focal deficits Psychiatric: normal affect Result Diagrams: 02/08/19 04:18 02/07/19 06:25 Additional Labs: Post Labs Blood Type O POSITIVE 02/07/19 06:25 Hep Bs Antigen Non-Reactive S/CO (NonReactive) 02/07/19 06:25 - Assessment/Plan POD3 s/p RCS at 37w 2/2 GHTN, GDM GHTN- nl-mild range BP no sx PIH, will monitor BP as outpt. Met all postop milestones Breastpumping, getting out of NICU today Cont postop care, home tomorrow.
[2019-02-11] MEDS: Ibuprofen 800 MG TAB PO SCH (05:35)
--- NOTE | 2019-02-11 06:25 | PDOC.PP ---
Post Progress Note Post Day #: POD4 Subjective: Tolerating regular diet, ready for home. PO intake tolerated: yes Flatus: yes Ambulation: yes Vital Signs (12 hours) Temp Pulse Resp BP Pulse Ox 02/11/19 00:25 99 145/87 H 02/11/19 00:20 98.3 F 99 150/78 H 02/10/19 19:01 98.6 F 80 16 117/59 L 98 Weight Weight 76.657 kg - Physical Examination General: NAD Respiratory: non-labored breathing Abdominal: no distention, appropriately TTP Skin: CS incision dry & intact Psychiatric: normal affect Result Diagrams: 02/08/19 04:18 02/07/19 06:25 Additional Labs: Post Labs Blood Type O POSITIVE 02/07/19 06:25 Hep Bs Antigen Non-Reactive S/CO (NonReactive) 02/07/19 06:25 - Assessment/Plan DC home. Precautions reviewed in detail. RTC with Dr. Salinas in 2 weeks.
[2019-02-11] MEDS: Ferrous Sulfate 325 MG TAB PO SCH (07:30)
[2019-02-11] MEDS: Docusate Calcium (SURFAK) 240 MG CAP PO SCH (10:27)
[2019-02-11] MEDS: Prenatal Vitamin 1 TAB PO SCH (10:27)
[2019-02-11 12:41] VITALS: BP 137/88; TEMP 98.7
--- NOTE | 2019-02-13 06:52 | PQF ---
Mariya Chris JANELLE [id number] CLINICAL DOCUMENTATION CLARIFICATION FORM: POST DISCHARGE Addendum to original discharge summary date: ____ Late entry note date: __ DATE: 02/13/2019 ATTN: LANDON SPRAGUE Please exercise your independent, professional judgment in responding to the clarification form. Clinical indicators are provided on the bottom of this form for your review Please check appropriate box(s): [ ] Acute blood loss anemia [ X] Post-op anemia related to acute blood loss [ ] Anemia: [ ] Aplastic [ ] Nutritional [ ] Drug induced (specify) ___ [ ] Hemolytic [ ] Hereditary [ ] Acquired [ ] Autoimmune [ ] Non-autoimmune [ ] Enzyme disorder [ ] Chronic Anemia: [ ] Blood loss [ ] Hemolytic [ ] Simple [ ] Due to Vitamin B12 Deficiency [ ] Other [ ] Anemia of Chronic Disease (please specify) [ ] Other diagnosis [ ] Unable to determine In addition, please specify: Present on Admission (POA): [ ] Yes [ X ] No [ ] Unable to determine For continuity of documentation, please document condition throughout progress notes and discharge summary. Thank You. CLINICAL INDICATORS - SIGNS / SYMPTOMS / LABS - Estimated blood loss: 500ml- OP report, 02/07, LANDON SPRAGUE - HGB:13.9-Pre OP, 02/07, 10.4L-Post OP, 02/08, Laboratory - HCT:39.4-Pre OP, 02/07, 30.5L-Post OP, 02/08, Laborator RISK FACTORS - - OP report, 02/07- LANDON SPRAGUE - Gestational DM- OP report, 02/07, LANDON SPRAGUE TREATMENTS: -Ferrous sulfate.PO- MAR, 02/07 (This form is maintained as a part of the permanent medical record) 2014 [employer] All Rights Reserved [facility]
== END 2019-02-11 13:30 | disposition home or self-care (01) | DRG 787 ==
LOC: L&D 05:42 → 3SW 11:29
PROVIDERS: ADMIT Student in an Organized Health Care Education/Training Program; ATTEND Student in an Organized Health Care Education/Training Program
PROC: 10D00Z1 Extraction of Products of Conception, Low, Open Approach (ICD-10-PCS; principal; 2019-02-07)
DX: O34.211 Maternal care for low transverse scar from previous cesarean delivery (principal); D62 Acute posthemorrhagic anemia; Z3A.37 37 weeks gestation of pregnancy; Z37.0 Single live birth; O13.4 Gestational [pregnancy-induced] hypertension without significant proteinuria, complicating childbirth; O24.420 Gestational diabetes mellitus in childbirth, diet controlled; O99.344 Other mental disorders complicating childbirth; F41.9 Anxiety disorder, unspecified; O90.81 Anemia of the puerperium
CPT/HCPCS: 36415; 51702; 80053; 85027; 86780; 86850; 86900; 86901; 87340; 88307; J0690; J1885; J2175; J2274; J2405; J2550; J2590; J3010; Q0163

== ENCOUNTER 2020-07-04 16:35 | Outpatient (CLI) | payer SELFPAY ==
[2020-07-05 01:53] LABS: SARS-CoV-2 PCR by NAA Not Detected (NotDetected)
== END 2020-07-04 16:36 | disposition home or self-care (01) ==
LOC: LABBT 16:35
PROVIDERS: ATTEND Surgery
DX: Z01.812 Encounter for preprocedural laboratory examination (principal); E03.9 Hypothyroidism, unspecified; Z20.822 Contact with and (suspected) exposure to COVID-19
CPT/HCPCS: 87635; U0003; U0005

== ENCOUNTER 2020-07-09 08:53 | Day surgery (SDC) | payer OTHER, SELFPAY ==
[2020-07-08 10:21] VITALS: BMI 27.4
[2020-07-09] MEDS ORDERED: Bupivacaine 0.25% HCL 30 ML VIAL ONE (13:55)
[2020-07-09] MEDS ORDERED: Lidocaine 1% w/Epinephrine 1:100K 20 ML VIAL ONE (13:55)
[2020-07-09] MEDS ORDERED: Fentanyl 250 MCG/5 ML VIAL ONE (14:03)
[2020-07-09] MEDS ORDERED: Dexamethasone 20 MG/5 ML VIAL ONE (14:12)
[2020-07-09] MEDS ORDERED: Rocuronium Bromide 10 MG/ML (10ML VIAL) ONE (14:12)
[2020-07-09] MEDS ORDERED: Lidocaine 1% PF 5 ML VIAL ONE (14:12)
[2020-07-09] MEDS ORDERED: Ondansetron PF 4 MG/2 ML Vial ONE ×2 (14:12→16:49)
[2020-07-09] MEDS ORDERED: Glycopyrrolate 0.2 MG/ML 5 ML SYRINGE ONE (14:12)
[2020-07-09] MEDS ORDERED: Ketorolac Tromethamine 30 MG/ML VIAL ONE (14:12)
[2020-07-09] MEDS ORDERED: PROPOFOL 200 MG/20 ML VIAL ONE (14:12)
[2020-07-09] MEDS ORDERED: Fentanyl 100 MCG/2 ML VIAL ONE ×4 (15:57→18:33)
[2020-07-09] MEDS ORDERED: Promethazine HCl 25 MG/ML VIAL ONE (17:09)
[2020-07-09] MEDS ORDERED: HYDROcodone/Acetaminophen 5/325 mg Tablet ONE ×2 (18:47→18:48)
== END 2020-07-09 20:45 | disposition home or self-care (01) ==
LOC: SDC 08:53
PROVIDERS: ATTEND Surgery
PROC: 0FT44ZZ Resection of Gallbladder, Percutaneous Endoscopic Approach (ICD-10-PCS; principal; 2020-07-09)
DX: K80.12 Calculus of gallbladder with acute and chronic cholecystitis without obstruction (principal); E03.9 Hypothyroidism, unspecified; Z79.899 Other long term (current) drug therapy; Z88.0 Allergy status to penicillin; Z88.1 Allergy status to other antibiotic agents; Z88.8 Allergy status to other drugs, medicaments and biological substances
CPT/HCPCS: 88304; J0690; J1100; J1885; J2405; J2550; J2704; J3010; S0020